=== PATIENT | female | born 1940 ===

== ENCOUNTER 2016-05-05 18:50 | Inpatient (IN) ==
[2016-05-05] MEDS ORDERED: ALBUTEROL/IPRATROPIUM 3 ML NEB RESP TX STA (19:27)
[2016-05-05 19:35] LABS: Basophils # 0.1 10*3/uL (0.0-0.2); Basophils % 0.7 % (0.0-0.8); Eosinophils # 0.6 10*3/uL (0.0-0.87); Eosinophils % 6.6 % (0.00-10.9); Hematocrit 38.2 VOL% (35.7-47.0); Hemoglobin 12.3 GM/DL (12.0-16.0); Immature Granulocytes % 0.3 %; Immature Granulocytes Absolute 0.03 #; Lymphocytes % 22.5 % (21.3-54.2); Mean Corpuscular HGB Conc 32.2 GM/DL (32-36); Mean Corpuscular Hemoglobin 29 PG (27-34); Mean Platelet Volume 10.2 FL (9.6-12.0); Monocytes # 0.5 10*3/uL (0.11-0.8); Monocytes % 5.2 % (1.7-12.7); Neutrophils # 5.8 10*3/uL (1.4-7.4); Neutrophils % 64.7 % (38.7-73.9); Platelet Count 267 T/CUMM (130-400); Red Blood Count 4.29 MC/CUMM (3.8-5.5); Red Cell Distribution Width 14.6 % (9.3-17.3); White Blood Count 8.9 T/CUMM (4-12)
[2016-05-05 19:49] LABS: Albumin 2.3 G/DL (3.4-5.0); Bilirubin,Total 0.5 MG/DL (0.2-1.0); Calcium 8.7 MG/DL (8.5-10.1); Magnesium 2.2 MG/DL (1.8-2.4); Osmolality,Calculated 295.1 MOS/KG (273-304); Potassium 3.4 MMOL/L (3.5-5.1); Total Protein 7.8 G/DL (6.4-8.3); Troponin I Only 0.044 NG/ML (0.00-0.045)
[2016-05-05 19:55] LABS: ABG Base Excess 2.5 MMOL/L (-2.5-2.5); ABG HCO3 26.8 MMOL/L (20-26); ABG PCO2 40.3 MM HG (35-48); ABG PO2 96.6 MM HG (80-95); Allen Test Positive
--- NOTE | 2016-05-05 22:24 | Emergency Department Note ---
Timmy Joy Brittany, am scribing for, and in the presence of, Michelle Mathew DO 19:21. Quincy Joy Catherine, DO, personally performed the services described in this documentation, ascribed by Karie Warner in my presence, and it is both accurate and complete . Arrival - Arrival Chief Complaint: Non-Specific Stated Complaint: elevated trop ED Nursing Triage Note: pt to room via stretcher. pt transfer from [facility]. pt was seen in [facility] for cough/ congestion. pt was transfered for elevated trop/ elevated bnp, and pleural effusion. Mode of Arrival: Stretcher Limitations: No Limitations Source: Patient, RN Notes Reviewed Time Seen by Provider: 05/05/16 19:11 - History of Present Illness HPI Narrative: Patient is a 75 y/o [place] female presenting to the ED by EMS from [facility] for further evaluation of elevated Troponin, elevated BNP, and pleural effusion. Patient presented to [facility] earlier today for c/o cough, congestion, sore throat, and "not feeling well." From lab work results obtained from [facility], patient had an elevated BNP of 6468.8 and elevated Troponin of 0.10. Patient has a past medical history of HTN and IDDM. Patient is somewhat of a poor historian. Patient states that prior to today she had never been told she had any heart problems. Patient notes that she still has a sore throat that is worse with swallowing, but denies any chest pain or shortness of breath. In room patient appears to be very weak. Patient has no other complaint/pain in the ED at this time. Onset (ago): day(s) Consistency: intermittent Severity: moderate Severity scale (1-10): 5 Quality: aching, fullness Allergies/Adverse Reactions: Allergies Allergy/AdvReac Type Severity Reaction Status Date / Time ibuprofen [From Motrin] Allergy Intermediate UNCONSCIOUS Verified 01/12/16 21:18 Medroxyprogesterone Allergy Intermediate RASH Verified 01/12/16 21:18 [From Provera] bee venom (honey bee) Allergy DIFFICULTY Verified 05/05/16 19:01 SWALLOWING Home Medications: Home Medications Medication Instructions Recorded Confirmed Type Aspirin [Ecotrin] 81 mg PO DAILY 01/12/16 01/12/16 History Glimepiride 4 mg PO BID 01/12/16 01/12/16 History Insulin Glargine [Lantus] 40 unit SUBCUT QAM 01/12/16 01/12/16 History Insulin Glargine [Lantus] 40 unit SUBCUT QPM 01/12/16 01/12/16 History Lisinopril 20 mg PO DAILY 01/12/16 01/12/16 History Metoprolol Tartrate 50 mg PO DAILY 01/12/16 01/12/16 History hydrALAZINE TAB [Apresoline Tab] 25 mg PO BID 01/12/16 01/12/16 History Review of System - Review of System 12 point system: reviewed and no additional remarkable complaints except as stated - Review of System Constitutional: Present: as per HPI Head/Ears/Nose/Throat: Present: sore throat, other (congestion) Respiratory: Present: cough Cardiovascular: Present: dyspnea on exertion, orthopnea, edema. Absent: chest pain, palpitations, syncope Gastrointestinal: Absent: abdominal pain, nausea, vomiting Musculoskeletal: Present: leg pain Skin: Absent: rash, lesions Neurological: Present: headache, weakness. Absent: numbness, confusion Medical,Surgical,& Family Hx - Medical History Cardio: History of: Hypertension Endocrine: History of: Diabetes Mellitus (IDDM) - Surgical History Surgical History: noncontributory Orthopedic Surgeries: Patient denies;: Total Knee Replacement - Family History Family History: noncontributory - Social History Smoking Status: Unknown if ever smoked Have you smoked in the last 12 months: No Frequency of Alcohol Use: Unknown Type of Drug Use: Unknown Marital Status: Unknown Functional capacity: independent ambulation Exam Vital Signs: Vital Signs Temperature 98.3 F 05/05/16 18:50 Pulse Rate 58 L 05/05/16 19:56 Respiratory Rate 16 05/05/16 19:56 Blood Pressure 130/120 05/05/16 18:50 O2 Sat by Pulse Oximetry 100 05/05/16 19:56 - General General appearance: alert, in no apparent distress - Head Head exam: Present: atraumatic, normocephalic - Eye Eye exam: Present: normal appearance, PERRL, EOMI - ENT ENT exam: Present: mucous membranes moist, TM's normal bilaterally. Absent: normal exam (erythematous throat), normal oropharynx (edentulous) - Neck Neck exam: Present: normal inspection, full ROM, trachea midline. Absent: tenderness - Chest Chest inspection: Present: normal inspection, symmetric chest wall rise. Absent : tenderness - Respiratory Respiratory exam: Absent: normal lung sounds bilaterally (lung sounds diminished at the bases), rales, rhonchi, wheezes - Cardiovascular Cardiovascular exam: Present: regular rate, normal rhythm, normal heart sounds. Absent: murmur, rubs, gallop - Abdominal Exam Abdominal exam: Present: soft, normal bowel sounds. Absent: distention, tenderness, diminished bowel sounds - Extremities Exam Extremities exam: Present: full ROM, pedal edema. Absent: normal inspection ( wound to lateral aspect of RLE), tenderness - Back Exam Back exam: Present: normal inspection, full ROM. Absent: tenderness - Neurological Exam Neurological exam: Present: alert, oriented X3, CN II-XII intact, normal gait, reflexes normal. Absent: motor sensory deficit - Psychiatric Psychiatric exam: Present: normal affect - Skin Skin exam: Present: warm, dry Course Course Narrative: no changes in the er p had meds at [facility] prior to transfer for CHF and infection - Consultations Consultation #1: Dr. Sweeney Time: 22:00 Results - Labs CBC & BMP: 05/05/16 19:02 05/05/16 19:02 Lab Results: I have reviewed the patients labs Labs: Laboratory Tests 05/05/16 19:02 WBC 8.9 RBC 4.29 Hgb 12.3 Hct 38.2 MCV 89.0 MCH 29 MCHC 32.2 RDW 14.6 Plt Count 267 MPV 10.2 Neut % (Auto) 64.7 Lymph % (Auto) 22.5 [place] % (Auto) 5.2 Eos % (Auto) 6.6 Baso % (Auto) 0.7 Neut # (Auto) 5.8 Lymph # (Auto) 2.0 [place] # (Auto) 0.5 Eos # (Auto) 0.6 Baso # (Auto) 0.1 Immature Gran % 0.3 Nucleated RBC % 0.0 Immature Gran # 0.03 Nucleated RBCs # 0.00 Laboratory Tests 05/05/16 19:02 Sodium 149 H Potassium 3.4 L Chloride 112 H Carbon Dioxide 27 Anion Gap 13.4 BUN 15 Creatinine 1.30 H GFR Calculation 49 BUN/Creatinine Ratio 11.00 Glucose 80 Calculated Osmolality 295.1 Calcium 8.7 Magnesium 2.2 Total Bilirubin 0.50 AST 14 ALT 16 Alkaline Phosphatase 112 Troponin I 0.044 Total Protein 7.8 Albumin 2.3 L Globulin 5.5 H Albumin/Globulin Ratio 0.4 L Laboratory Tests 05/05/16 19:52 ABG pH 7.440 ABG pCO2 40.3 ABG pO2 96.6 H ABG HCO3 26.8 H ABG Total CO2 28.0 H ABG O2 Saturation 97.0 ABG Base Excess 2.5 FiO2 28.00 Laboratory Tests 05/05/16 19:02 B-Natriuretic Peptide 1061 H - EKG EKG results: interpreted by ERMD - Impressions no acute findings - Diagnostic Findings Procedure: Chest x-ray: image reviewed by me (large effusion right lower lobe) Disposition Clinical Impression: CHF exacerbation Case discussed with: patient Disposition: Still a Patient Condition: Stable Time of Disposition: 22:24
--- NOTE | 2016-05-05 23:35 | Hospitalist History & Physical ---
Assessment and Plan (1) CHF exacerbation Status: Acute Assessment and plan: The patient is admitted to the hospital with sore throat, probable urinary tract infection. No urinalysis that she have been obtained but the patient smells of stale urine consistent with infection. The patient has right pleural effusion and 2+ pedal edema with mild cellulitic changes of the lower extremities. The patient will receive IV Levaquin, intravenous diuresis, control of blood sugar. We'll check urinalysis and urine culture as well as blood cultures. Current Visit: Yes Qualifiers: Congestive heart failure type: unspecified congestive heart failure type Qualified Code(s): I50.9 - Heart failure, unspecified (2) UTI (urinary tract infection) Status: Acute Current Visit: Yes (3) Sore throat Status: Acute Current Visit: Yes History of Present Illness Chief complaint: sore throat and shortness of breath History of present illness: Ms. Barnard is a 75 year old female from [facility]. The patient has history of congestive heart failure. The patient went to [facility] with complaint of sore throat today. The patient was transferred to [facility] for further evaluation. Upon my examination here at the emergency room the patient has strong smell of urine. The patient complains of sore throat and shortness of breath which is improving since she was given Lasix at [facility]. The patient's symptom is moderate, continuous, and began to improve. The patient's sore throat is associated with some indolent fever. The patient complains of painful lower extremities which are edematous. Home Medications Medication Instructions Recorded Confirmed Type Aspirin [Ecotrin] 81 mg PO DAILY 01/12/16 01/12/16 History Glimepiride 4 mg PO BID 01/12/16 01/12/16 History Insulin Glargine [Lantus] 40 unit SUBCUT QAM 01/12/16 01/12/16 History Insulin Glargine [Lantus] 40 unit SUBCUT QPM 01/12/16 01/12/16 History Lisinopril 20 mg PO DAILY 01/12/16 01/12/16 History Metoprolol Tartrate 50 mg PO DAILY 01/12/16 01/12/16 History hydrALAZINE TAB [Apresoline Tab] 25 mg PO BID 01/12/16 01/12/16 History Allergies Allergy/AdvReac Type Severity Reaction Status Date / Time ibuprofen [From Motrin] Allergy Intermediate UNCONSCIOUS Verified 01/12/16 21:18 Medroxyprogesterone Allergy Intermediate RASH Verified 01/12/16 21:18 [From Provera] bee venom (honey bee) Allergy DIFFICULTY Verified 05/05/16 19:01 SWALLOWING Medical,Surgical,& Family Hx - Medical History Cardio: History of: CHF, Hypertension Endocrine: History of: Diabetes Mellitus (NIDDM) - Surgical History Orthopedic Surgeries: Patient denies;: Total Knee Replacement - Social History Smoking Status: Unknown if ever smoked Frequency of Alcohol Use: Unknown Type of Drug Use: Unknown Marital Status: Lives With:: Children Functional capacity: uses cane/walker 12 point system: reviewed and no additional remarkable complaints except as stated Exam - Constitutional Vitals: Period Temp Pulse Resp BP Sys/Marte Pulse Ox Last 24 Hr 98.3 F-98.3 F 58-63 13-18 130-130/120-120 94-100 Exam: Obese-appearing elderly lady laying in bed in left lateral decubitus. Constitutional System: Mild distress. No tremulousness. Head: Normocephalic, atraumatic. Ears, Nose and Throat System: No evidence of Otitis or Mastoiditis. No epistaxis or discharge Eyes System: Pupils equal, round, and reactive. Extraocular muscles intact. Neck: Supple, without adenopathy, 1+ jugular venous distention. No thyromegaly , neck mass, or prior surgery apparent. Respiratory System: Chest rales in bases to auscultation. Reduced sounds on the right Cardiovascular System: Heart with regular rate and rhythm. No murmur. GI System: Abdomen obese, soft, nontender. Normoactive bowel sounds present. Musculoskeletal System: limbs with 2+ pedal edema. Full distal pulses. Reddened skin Neurological System: No discernable sensory deficit. No aphasia Psychiatric System: Conversation is rational Results - Labs CBC & BMP: 05/05/16 19:02 05/05/16 19:02 Lab Results: I have reviewed the past 24 hour labs
[2016-05-06] MEDS ORDERED: GLUCAGON 1 MG VIAL IM PRN (00:34)
[2016-05-06] MEDS ORDERED: ONDANSETRON 4 MG/2 ML VIAL IV PRN (00:34)
[2016-05-06] MEDS ORDERED: ACETAMINOPHEN 325 MG TABLET PO PRN (00:34)
[2016-05-06 01:47] LABS: Basophils # 0.1 10*3/uL (0.0-0.2); Basophils % 0.7 % (0.0-0.8); Eosinophils # 0.5 10*3/uL (0.0-0.87); Eosinophils % 5.2 % (0.00-10.9); Hematocrit 35.9 VOL% (35.7-47.0); Hemoglobin 11.7 GM/DL (12.0-16.0); Immature Granulocytes % 0.3 %; Immature Granulocytes Absolute 0.03 #; Lymphocytes # 1.6 10*3/uL (1.4-4.0); Lymphocytes % 17.9 % (21.3-54.2); Mean Corpuscular HGB Conc 32.6 GM/DL (32-36); Mean Corpuscular Hemoglobin 28 PG (27-34); Mean Corpuscular Volume 86.9 FL (87-102); Mean Platelet Volume 10.2 FL (9.6-12.0); Monocytes # 0.5 10*3/uL (0.11-0.8); Monocytes % 5.3 % (1.7-12.7); Neutrophils # 6.3 10*3/uL (1.4-7.4); Neutrophils % 70.6 % (38.7-73.9); Platelet Count 244 T/CUMM (130-400); Red Blood Count 4.13 MC/CUMM (3.8-5.5); Red Cell Distribution Width 14.6 % (9.3-17.3); White Blood Count 8.9 T/CUMM (4-12)
[2016-05-06] MEDS: LEVOFLOXACIN INJ 500 MG in PREMIX 1 EACH IV SCH (01:54)
[2016-05-06 02:14] LABS: Calcium 8.2 MG/DL (8.5-10.1); Magnesium 2.2 MG/DL (1.8-2.4); Osmolality,Calculated 295.1 MOS/KG (273-304); Potassium 3.5 MMOL/L (3.5-5.1)
[2016-05-06 02:18] LABS: Troponin I Only 0.086 NG/ML (0.00-0.045)
--- NOTE | 2016-05-06 07:18 | EKG Report ---
Stationary ECG Study [facility] ER Test Date: 05/05/2016 6:36:33 PM Pat Name: RUTH TIERNEY Department: Room: 272 Gender: F [employer] Teacher: : 1940 Requested by: Michelle Mathew Order Number: [id number] Reading MD: HERMAN MAXWELL Intervals [place] Rate: 61 P: 7 VA: 159 QRS: -18 QRSD: 97 T: 69 QT: 423 QTc: 426 Interpretive Statements SINUS RHYTHM DELAYED ANTERIOR R WAVE PROGRESSION INDICATING POSSIBLE ANTERIOR MYOCARDIAL INFARCTION, OF INDETERMINATE AGE Electronically Signed On 05-06-16 11:33:02 CODER OPERATOR by HERMAN MAXWELL [email or web address]
--- NOTE | 2016-05-06 08:07 | EKG Report ---
Stationary ECG Study [facility] Test Date: 05/06/2016 8:06:35 AM Pat Name: RUTH TIERNEY Department: Room: 272 Gender: F Refrigerating Engineer: LIZA : 1940 Requested by: Aron Sweeney Order Number: [id number] Reading MD: HERMAN MAXWELL Intervals [place] Rate: 70 P: -13 AK: 133 QRS: -42 QRSD: 92 T: 76 QT: 403 QTc: 423 Interpretive Statements SINUS RHYTHM MARKED LEFT AXIS DEVIATION/LEFT ANTERIOR FASCICULAR BLOCK PATTERN CONSISTENT WITH PULMONARY DISEASE LEFT VENTRICULAR HYPERTROPHY AND ST-T CHANGE Electronically Signed On 05-06-16 11:50:03 CULLET TRUCKER by HERMAN MAXWELL [email or web address]
[2016-05-06] MEDS: INSULIN LISPRO 100 UNIT/ML SUBCUT SCH ×4 (09:12→21:06)
[2016-05-06] MEDS: INSULIN GLARGINE 100 UNIT/ML SUBCUT SCH ×2 (09:12→18:44)
[2016-05-06] MEDS: ENOXAPARIN 30 MG/0.3 ML SYRINGE SUBCUT SCH (09:13)
[2016-05-06] MEDS: PANTOPRAZOLE 40 MG TABLET PO SCH (09:14)
[2016-05-06] MEDS: FUROSEMIDE 40 MG/4 ML VIAL IV SCH (09:14)
[2016-05-06] MEDS: ASPIRIN EC 81 MG TABLET PO SCH (09:14)
[2016-05-06] MEDS: hydrALAZINE 25 MG TABLET PO SCH ×2 (09:14→21:06)
--- NOTE | 2016-05-06 10:18 | Hospitalist Progress Note ---
Assessment and Plan (1) CHF exacerbation Status: Acute Assessment and plan: She is being treated with IV furosemide. Current Visit: Yes Qualifiers: Congestive heart failure type: unspecified congestive heart failure type Qualified Code(s): I50.9 - Heart failure, unspecified (2) UTI (urinary tract infection) Status: Acute Assessment and plan: She has been begun on antibiotics. Current Visit: Yes (3) Sore throat Status: Acute Assessment and plan: See above. Current Visit: Yes (4) Dysphagia Status: Acute Assessment and plan: Change to NPO. Speech therapy evaluation tomorrow. Current Visit: Yes Hospitalist: Subjective Interval history: Her chief complaint is that she is unable to eat. I do not completely understand her, but her difficulty does not appear to be due to sore throat. She denies dysuria or dyspnea. Exam - Constitutional Vitals: Period Temp Pulse Resp BP Sys/Marte Pulse Ox Last 24 Hr 97.1 F-97.6 F 62-79 16-18 185-199/77-97 96-97 General appearance: no acute distress - Head Head exam: Present: normal inspection - Eye Pupils: Present: [place] - ENT ENT exam: Present: normal oropharynx - Neck Neck exam: Present: normal inspection - Respiratory Respiratory exam: Present: clear to auscultation bilaterally - Cardiovascular Cardiovascular exam: Present: regular rate and rhythm - GI/Abdominal GI/Abdominal exam: Present: normal bowel sounds, soft (nontender) - Extremities Exam Extremities exam: Present: edema - Neurological Exam Neurological exam: Present: alert, oriented X3, other (no gross motor or sensory defeicits) - Skin Skin exam: Present: normal color Results - Labs CBC & BMP: 05/06/16 01:25 05/06/16 01:25
[2016-05-06] MEDS: SODIUM CHLORIDE 0.9% 1,000 ML IV SCH (10:30)
[2016-05-06 12:22] LABS: Apearance,Urine CLEAR (Clear); Bilirubin,Urine Negative (Negative); Blood, Urine Small mg/dL (Negative); Glucose,Urine (UA) Negative (Negative); Hyaline Casts,Urine 1 /LPF (0-3); Ketones,Urine Negative (Negative); Mucus,Urine Occasional /LPF (Occasional); Nitrite,Urine Negative (Negative); Protein,Urine 30 MG/DL; RBC,Urine 4 /HPF (0-4); Squamous Epithelial Cell,Urine Occasional /HPF (0-10); Urine Color Colorless (Yellow); Urine Specific Gravity 1.005 (1.001-1.035); Urine Urobilinogen < 2.0 EU/DL (0.2-1.0); WBC,Urine 8 /HPF (0-6)
[2016-05-06] MEDS: DEXTROSE 50% 25 GM/50 ML VIAL IV PRN ×2 (17:02→17:21)
[2016-05-06] MEDS: hydrALAZINE 20 MG/1 ML VIAL IV PRN (17:20)
[2016-05-07] MEDS: LEVOFLOXACIN INJ 500 MG in PREMIX 1 EACH IV SCH (00:12)
[2016-05-07 05:27] LABS: Basophils # 0.1 10*3/uL (0.0-0.2); Basophils % 0.6 % (0.0-0.8); Eosinophils # 0.3 10*3/uL (0.0-0.87); Eosinophils % 3.3 % (0.00-10.9); Hematocrit 36.5 VOL% (35.7-47.0); Hemoglobin 11.6 GM/DL (12.0-16.0); Immature Granulocytes % 0.5 %; Immature Granulocytes Absolute 0.04 #; Lymphocytes # 1.4 10*3/uL (1.4-4.0); Lymphocytes % 16.2 % (21.3-54.2); Mean Corpuscular HGB Conc 31.8 GM/DL (32-36); Mean Corpuscular Hemoglobin 28 PG (27-34); Mean Corpuscular Volume 88.8 FL (87-102); Mean Platelet Volume 9.9 FL (9.6-12.0); Monocytes # 0.4 10*3/uL (0.11-0.8); Monocytes % 4.9 % (1.7-12.7); Neutrophils # 6.6 10*3/uL (1.4-7.4); Neutrophils % 74.5 % (38.7-73.9); Platelet Count 236 T/CUMM (130-400); Red Blood Count 4.11 MC/CUMM (3.8-5.5); Red Cell Distribution Width 14.8 % (9.3-17.3); White Blood Count 8.8 T/CUMM (4-12)
[2016-05-07 05:56] LABS: Calcium 8.2 MG/DL (8.5-10.1); Osmolality,Calculated 296.3 MOS/KG (273-304); Potassium 3.9 MMOL/L (3.5-5.1)
[2016-05-07] MEDS: FUROSEMIDE 40 MG/4 ML VIAL IV SCH (08:53)
[2016-05-07] MEDS: ENOXAPARIN 30 MG/0.3 ML SYRINGE SUBCUT SCH (08:53)
[2016-05-07] MEDS: hydrALAZINE 25 MG TABLET PO SCH ×2 (09:00→22:25)
[2016-05-07] MEDS: ASPIRIN EC 81 MG TABLET PO SCH (09:00)
[2016-05-07] MEDS: PANTOPRAZOLE 40 MG TABLET PO SCH (09:00)
[2016-05-07] MEDS: INSULIN GLARGINE 100 UNIT/ML SUBCUT SCH ×2 (09:00→18:34)
[2016-05-07] MEDS: hydrALAZINE 20 MG/1 ML VIAL IV PRN ×2 (09:37→16:35)
[2016-05-07] MEDS: INSULIN LISPRO 100 UNIT/ML SUBCUT SCH ×4 (10:13→22:26)
--- NOTE | 2016-05-07 10:24 | Hospitalist Progress Note ---
Assessment and Plan (1) Insulin dependent diabetes mellitus Status: Chronic Current Visit: Yes (2) Hypertension Status: Acute Assessment and plan: better controlled now as was very elevated on admit which could have contributed to her elevated BNP and pulmonary edema. Current Visit: Yes (3) Dysphagia Status: Acute Assessment and plan: she did start coughing after taking a sip of water. Speech evaluation and may need GI consult. Current Visit: Yes Qualifiers: Dysphagia type: oropharyngeal phase Qualified Code(s): R13.12 - Dysphagia, oropharyngeal phase Hospitalist: Subjective Interval history: 75-year-old female that was acute CHF. She is compliant elevated BNP. She was started on IV Lasix here which is diuresed well difficulty swallowing. She did get choked doing a bedside swallowing exam on water. Exam - Constitutional Vitals: Period Temp Pulse Resp BP Sys/Marte Pulse Ox Last 24 Hr 96.9 F-98.9 F 63-72 16-20 149-198/65-102 95-98 General appearance: no acute distress - Head Head exam: Present: atraumatic - Eye Eye exam: Present: EOMI Pupils: Present: [place] - ENT ENT exam: Present: normal oropharynx - Respiratory Respiratory exam: Present: clear to auscultation bilaterally - Cardiovascular Cardiovascular exam: Present: regular rate and rhythm - GI/Abdominal GI/Abdominal exam: Present: normal bowel sounds, soft - Extremities Exam Extremities exam: Present: other (hyperpigmentation with stage I ulcer of right leg) - Neurological Exam Neurological exam: Present: alert, oriented X3, CN II-XII intact - Psychiatric Psychiatric exam: Present: normal affect, normal mood Results - Labs CBC & BMP: 05/07/16 04:39 05/07/16 04:39
[2016-05-07] MEDS: SODIUM CHLORIDE 0.9% 1,000 ML IV SCH (11:38)
--- NOTE | 2016-05-07 12:12 | Gastrointestinal Consult Note ---
<Bree Darling - Last Filed: 05/07/16 12:08> Assessment and Plan (1) Dysphagia Status: Acute Assessment and plan: 05/07-Report of several weeks of difficulty swallowing with ST report showing choking with liquids. No prior endoscopy. Will hold off on endoscopy at present until CV/resp status improves. Plan and addendum to follow by Dr Schwartz Current Visit: Yes Qualifiers: Dysphagia type: oropharyngeal phase Qualified Code(s): R13.12 - Dysphagia, oropharyngeal phase History of Present Illness Chief complaint: Dysphagia History of present illness: Ms. Barnard is a 75 year old female who was transferred from [facility] with reports of SOB. She has a history of CHF, HTN and DM. She is a poor historian therefore information collected from patient interview as well as chart review. Pt was admitted on 05/05 with acute episode of CHF. On admission, she reported initially to have a sore throat however she later denied this complaint. She complains more of difficulty swallowing solids. She states this has been going on for "a while" and cannot eat very much related to this. She denies any pain with swallowing. Denies any GERD. She reports a cough for the last two weeks that worsened up until admission. She was evaluated by ST and report is pending however initial report showed pt became choked with liquids. She has not had endoscopy in the past that she can recall. No reports of melena or hematochezia. She continues to be diuresed at this time and does not appear to be able to lie down comfortably at present for endoscopy. She is noted to have a UTI as well. Home Medications Medication Instructions Recorded Confirmed Type Glimepiride 4 mg PO BID 01/12/16 05/07/16 History Insulin Glargine [Lantus] 40 unit SUBCUT QAM 01/12/16 05/07/16 History Insulin Glargine [Lantus] 40 unit SUBCUT QPM 01/12/16 05/07/16 History Lisinopril 20 mg PO DAILY 01/12/16 05/07/16 History Metoprolol Tartrate 50 mg PO DAILY 01/12/16 05/07/16 History hydrALAZINE TAB [Apresoline Tab] 0.5 tablet PO BID 01/12/16 05/07/16 History Albuterol Inhaler [Proventil 2 puff INH Q4H PRN 05/07/16 05/07/16 History Inhaler] Aspirin [Ecotrin] 81 mg PO DAILY 05/07/16 05/07/16 History Furosemide Tab [Lasix Tab] 40 mg PO BID DIURETIC 05/07/16 05/07/16 History Potassium Chloride [K-Tab ER] 20 meq PO DAILY 05/07/16 05/07/16 History Simvastatin 20 mg PO DAILY 05/07/16 05/07/16 History Allergies Allergy/AdvReac Type Severity Reaction Status Date / Time ibuprofen [From Motrin] Allergy Intermediate UNCONSCIOUS Verified 01/12/16 21:18 Medroxyprogesterone Allergy Intermediate RASH Verified 01/12/16 21:18 [From Provera] bee venom (honey bee) Allergy DIFFICULTY Verified 05/05/16 19:01 SWALLOWING Medical,Surgical,& Family Hx - Medical History Cardio: History of: CHF, Hypertension Endocrine: History of: Diabetes Mellitus (IDDM), Diabetes Mellitus (NIDDM) - Surgical History Orthopedic Surgeries: Patient denies;: Total Knee Replacement - Social History Smoking Status: Never smoker Frequency of Alcohol Use: None Type of Drug Use: None 12 point system: reviewed and no additional remarkable complaints except as stated - Constitutional Constitutional: Present: as per HPI - EENT Eyes: Present: as per HPI Ears: Present: as per HPI Nose, mouth and throat: Present: dysphagia - Cardiovascular Cardiovascular: Present: as per HPI, dyspnea - Respiratory Respiratory: Present: as per HPI - Gastrointestinal Gastrointestinal: Present: as per HPI - Genitourinary Genitourinary: Present: as per HPI - Musculoskeletal Musculoskeletal: Present: as per HPI - Neurological Neurological: Present: as per HPI - Psychiatric Psychiatric: Present: as per HPI - Endocrine Endocrine: Present: as per HPI - Hematologic/Lymphatic Hematologic/Lymphatic: Present: as per HPI Exam - Constitutional Vitals: Period Temp Pulse Resp BP Sys/Marte Pulse Ox Last 24 Hr 97.4 F-98.9 F 63-72 16-20 149-198/65-102 95-98 General appearance: normal weight, no acute distress - Head Head exam: Present: normal inspection, normocephalic - Eye Eye exam: Present: other (lids and conjunctiva unremarkable). Absent: scleral icterus - ENT ENT exam: Present: normal exam, normal oropharynx - Neck Neck exam: Present: normal inspection - Respiratory Respiratory exam: Present: clear to auscultation bilaterally. Absent: rales, rhonchi, wheezes - Cardiovascular Cardiovascular exam: Present: regular rate and rhythm. Absent: diastolic murmur , JVD, systolic murmur - GI/Abdominal GI/Abdominal exam: Present: normal bowel sounds, soft. Absent: ascites, distended, mass, organomegaly, tenderness - Extremities Exam Extremities exam: Present: normal inspection, full ROM - Back Exam Back exam: Present: normal inspection - Neurological Exam Neurological exam: Present: alert, oriented X3 - Psychiatric Psychiatric exam: Present: normal affect, normal mood - Skin Skin exam: Present: normal color, warm, dry Results - Labs CBC & BMP: 05/07/16 04:39 05/07/16 04:39 Lab Results: I have reviewed the past 24 hour labs <Anthony Schwartz - Last Filed: 05/07/16 18:12> History of Present Illness History of present illness: Ms. Barnard is a 75 year old female Exam - Constitutional Vitals: Period Temp Pulse Resp BP Sys/Marte Pulse Ox Last 24 Hr 97.4 F-99.0 F 63-82 16-20 149-191/65-96 96-98 Results - Labs CBC & BMP: 05/07/16 04:39 05/07/16 04:39
[2016-05-07] MEDS ORDERED: SKIN HEALING OINT (AQUAPHOR) 50 GM TUBE TOP PRN (14:16)
--- NOTE | 2016-05-07 18:13 | ECHO Report ---
Veronica Barnard Exam Date: 05/07/2016 11:06 Referring Physician: Technologist: Marquis EDWARDS Age: 75 Ht (in): Wt (lb): Gender: F Exam Location: [facility] Echo Indications: CHF, Hypertension BP: / HR: Rhythm: Sinus Technical Quality: Good IMPRESSIONS Moderately increased septal wall thickness. Mildly increased posterior wall thickness. Moderate concentric left ventricular hypertrophy with diastolic dysfunction. Left ventricular ejection fraction is estimated at 50-55 %. Mild apical LAE. Mildly thickened mitral valve with mild mitral regurgitation. Moderate tricuspid valve regurgitation. Tricuspid regurgitation velocities suggest a PAP of 38.7 mmHg + RAP. Small posterior pericardial effusion. ? left pleural effusion. MEASUREMENTS (Male / Female) Normal Values 2D ECHO LV Diastolic Diameter PLAX 4.7 cm 4.2 - 5.9 / 3.9 - 5.3 cm LV Systolic Diameter PLAX 2.5 cm LV Fractional Shortening PLAX 48.0 % IVS Diastolic Thickness 1.5 cm 0.6 - 1.0 / 0.6 - 0.9 cm LVPW Diastolic Thickness 1.3 cm 0.6 - 1.0 / 0.6 - 0.9 cm RV Internal Dim ED PLAX 3.1 cm Aortic Root Diameter 2.2 cm LA Systolic Diameter LX 3.3 cm 3.0 - 4.0 / 2.7 - 3.8 cm DOPPLER TR Peak Velocity 311.0 cm/s TR Peak Gradient 38.7 mmHg FINDINGS Left Ventricle Moderately increased septal wall thickness. Mildly increased posterior wall thickness. Moderate concentric left ventricular hypertrophy with diastolic dysfunction. Left ventricular ejection fraction is estimated at 50-55 %. Right Ventricle Normal right ventricular size. Right Atrium Normal right atrial size. Left Atrium mild apical LAE Mitral Valve Mildly thickened mitral valve with mild mitral regurgitation. Aortic Valve Aortic valve sclerosis without stenosis or regurgitation. Tricuspid Valve Morphologically normal tricuspid valve. Moderate tricuspid valve regurgitation. Tricuspid regurgitation velocities suggest a PAP of 38.7 mmHg + RAP. Pulmonic Valve Morphologically normal pulmonic valve. Pericardium small posterior pericardial effusion. ? left pleural effusion Aorta Normal size aortic root and proximal ascending aorta. Spike Choi MD (Electronically Signed) Final Date: 07 May 2016 18:12
[2016-05-08] MEDS: LEVOFLOXACIN INJ 500 MG in PREMIX 1 EACH IV SCH (00:46)
[2016-05-08 07:42] LABS: Calcium 8.1 MG/DL (8.5-10.1); Magnesium 2.1 MG/DL (1.8-2.4); Osmolality,Calculated 297.3 MOS/KG (273-304); Potassium 3.8 MMOL/L (3.5-5.1)
[2016-05-08] MEDS: PANTOPRAZOLE 40 MG TABLET PO SCH (08:36)
[2016-05-08] MEDS: SODIUM CHLORIDE 0.9% 1,000 ML IV SCH (08:36)
[2016-05-08] MEDS: ASPIRIN EC 81 MG TABLET PO SCH (08:36)
[2016-05-08] MEDS: ENOXAPARIN 30 MG/0.3 ML SYRINGE SUBCUT SCH (08:36)
[2016-05-08] MEDS: hydrALAZINE 25 MG TABLET PO SCH ×2 (08:36→20:34)
[2016-05-08] MEDS: INSULIN LISPRO 100 UNIT/ML SUBCUT SCH ×4 (08:36→20:51)
[2016-05-08] MEDS: INSULIN GLARGINE 100 UNIT/ML SUBCUT SCH ×2 (08:37→18:30)
--- NOTE | 2016-05-08 10:00 | Hospitalist Progress Note ---
Assessment and Plan (1) Insulin dependent diabetes mellitus Status: Chronic Current Visit: Yes (2) Hypertension Status: Acute Assessment and plan: better controlled now as was very elevated on admit which could have contributed to her elevated BNP and pulmonary edema. Current Visit: Yes (3) Dysphagia Status: Acute Assessment and plan: she did start coughing after taking a sip of water. Speech evaluation and may need GI consult. 05/08/16: it appears she is aspirating and will likely have an EGD tomorrow Current Visit: Yes Qualifiers: Dysphagia type: oropharyngeal phase Qualified Code(s): R13.12 - Dysphagia, oropharyngeal phase (4) Diastolic CHF Status: Acute Assessment and plan: EG about 50% with diastolic dysfunction noted on echo. Clinically she is much better today. Current Visit: Yes Hospitalist: Subjective Interval history: Patient presented with dyspnea and was found to have diastolic dysfunction she has an ejection fraction around 55%. Clinically she is improved from respiratory standpoint; however, her only main complaint now is this 5G. She was seen by GI yesterday and they will likely do an EGD was cleared from a cardiorespiratory standpoint. Also speech therapy did evaluate patient and appears she is likely having some aspiration. They have recommended a thickened consistency diet which is been initiated. Exam - Constitutional Vitals: Period Temp Pulse Resp BP Sys/Marte Pulse Ox Last 24 Hr 98.3 F-99.5 F 67-82 16-20 110-191/38-96 96-100 General appearance: over weight - Head Head exam: Present: normocephalic, atraumatic - Eye Eye exam: Present: EOMI Pupils: Present: [place] - Neck Neck exam: Present: normal inspection - Respiratory Respiratory exam: Present: clear to auscultation bilaterally - Cardiovascular Cardiovascular exam: Present: regular rate and rhythm - GI/Abdominal GI/Abdominal exam: Present: normal bowel sounds, soft - Neurological Exam Neurological exam: Present: alert, oriented X3, CN II-XII intact - Psychiatric Psychiatric exam: Present: normal affect, normal mood - Skin Skin exam: Present: warm, intact Results - Labs CBC & BMP: 05/07/16 04:39 05/08/16 06:06
--- NOTE | 2016-05-08 10:06 | Gastrointestinal Progress Note ---
<Bree Darling - Last Filed: 05/08/16 10:02> Assessment and Plan (1) Dysphagia Status: Acute Assessment and plan: 05/08-Continues to c/o difficulty swallowing. Resp/CV status improved today. Will consider EGD if pt remains stable. Plan and addendum to follow by Dr Schwartz. 05/07-Report of several weeks of difficulty swallowing with ST report showing choking with liquids. No prior endoscopy. Will hold off on endoscopy at present until CV/resp status improves. Plan and addendum to follow by Dr Schwartz Current Visit: Yes Qualifiers: Dysphagia type: oropharyngeal phase Qualified Code(s): R13.12 - Dysphagia, oropharyngeal phase Gastroenterology - PN: Subj Interval history: CC: Dysphagia Pt is awake, more alert today. She is breathing more comfortably, and is lying flat this morning for am care and is breathing well. She had an ST evaluation with some choking of thin liquids noted. Recommedation was given by ST for soft diet with chopped meats. Pt states she still cannot swallow well. Abdomen is soft, nontender. Discussed her current status today with Dr Schaefer and she feels it is safe to proceed with endoscopy at this point. ROS: Denies SOB or chest pain Exam (Progress Note) - Constitutional Vitals: Period Temp Pulse Resp BP Sys/Marte Pulse Ox Last 24 Hr 98.3 F-99.5 F 67-82 16-20 110-191/38-96 96-100 General appearance: no acute distress, over weight - Head Head exam: Present: normal inspection, normocephalic - Eye Eye exam: Present: other (lids and conjunctiva unremarakble). Absent: scleral icterus - ENT ENT exam: Present: normal exam, normal oropharynx - Neck Neck exam: Present: normal inspection - Respiratory Respiratory exam: Present: clear to auscultation bilaterally. Absent: rales, rhonchi, wheezes - Cardiovascular Cardiovascular exam: Present: regular rate and rhythm. Absent: diastolic murmur , JVD, systolic murmur - GI/Abdominal GI/Abdominal exam: Present: normal bowel sounds, soft. Absent: ascites, distended, mass, organomegaly, tenderness - Extremities Exam Extremities exam: Present: normal inspection, full ROM - Back Exam Back exam: Present: normal inspection - Neurological Exam Neurological exam: Present: alert, oriented X3 - Psychiatric Psychiatric exam: Present: normal affect, normal mood - Skin Skin exam: Present: normal color, warm, dry Results - Labs CBC & BMP: 05/07/16 04:39 05/08/16 06:06 Lab Results: I have reviewed the past 24 hour labs <Anthony Schwartz - Last Filed: 05/08/16 17:41> Exam (Progress Note) - Constitutional Vitals: Period Temp Pulse Resp BP Sys/Marte Pulse Ox Last 24 Hr 98.3 F-99.5 F 60-77 16-20 110-174/38-90 96-100 Results - Labs CBC & BMP: 05/07/16 04:39 05/08/16 06:06
[2016-05-09] MEDS: LEVOFLOXACIN INJ 500 MG in PREMIX 1 EACH IV SCH (00:23)
[2016-05-09] MEDS: SODIUM CHLORIDE 0.9% 1,000 ML IV SCH (06:43)
[2016-05-09] MEDS: DEXTROSE 5% 1,000 ML IV SCH (08:30)
[2016-05-09] MEDS: INSULIN LISPRO 100 UNIT/ML SUBCUT SCH ×4 (09:21→21:30)
[2016-05-09] MEDS: INSULIN GLARGINE 100 UNIT/ML SUBCUT SCH ×2 (09:22→18:09)
[2016-05-09] MEDS: ENOXAPARIN 30 MG/0.3 ML SYRINGE SUBCUT SCH (09:22)
--- NOTE | 2016-05-09 09:28 | XRay Report ---
XR knee 2V RT Indication: Pain. Right knee 2 views: [id number] articulation of the medial and lateral compartments noted with osteophyte development. Patellofemoral osteophytosis is noted as well. No fracture or dislocation seen. Tiny joint effusion is present. Impression: Severe 3 compartment osteoarthritis. PROCEDURE INTERPRETED AT [facility] DEPARTMENT OF RADIOLOGY Final Report Signed by: Ty Sevilla M.D.
[2016-05-09] MEDS ORDERED: KETOROLAC 15 MG/1 ML VIAL IV ONE (10:11)
--- NOTE | 2016-05-09 10:14 | Hospitalist Progress Note ---
Assessment and Plan (1) Insulin dependent diabetes mellitus Status: Chronic Current Visit: Yes (2) Hypertension Status: Acute Assessment and plan: better controlled now as was very elevated on admit which could have contributed to her elevated BNP and pulmonary edema. Current Visit: Yes (3) Dysphagia Status: Acute Assessment and plan: she did start coughing after taking a sip of water. Speech evaluation and may need GI consult. 05/08/16: it appears she is aspirating and will likely have an EGD tomorrow 05/09/16: gong for EGD today Current Visit: Yes Qualifiers: Dysphagia type: oropharyngeal phase Qualified Code(s): R13.12 - Dysphagia, oropharyngeal phase (4) Diastolic CHF Status: Acute Assessment and plan: EF about 50% with diastolic dysfunction noted on echo. Clinically she is much better today. 05/09/16: stable Current Visit: Yes (5) Osteoarthritis Status: Acute Assessment and plan: she does have some swelling with small joint effusion and bone on bone per xray. one time dose of Toradol and them start tramadol Current Visit: Yes Qualifiers: Osteoarthritis location: knee Osteoarthritis type: unspecified Laterality : right Qualified Code(s): M17.11 - Unilateral primary osteoarthritis, right knee Hospitalist: Subjective Interval history: 75 yo female admitted for decompensated CHF which has now resolved. Also complained of some GI symptoms and going for EGD today. Major complaints today is left knee pain Exam - Constitutional Vitals: Period Temp Pulse Resp BP Sys/Marte Pulse Ox Last 24 Hr 97.4 F-99.0 F 60-76 18-20 135-188/65-91 94-99 General appearance: over weight - Head Head exam: Present: normocephalic, atraumatic - Eye Eye exam: Present: EOMI Pupils: Present: [place] - ENT ENT exam: Present: normal exam - Respiratory Respiratory exam: Present: clear to auscultation bilaterally - Cardiovascular Cardiovascular exam: Present: regular rate and rhythm - GI/Abdominal GI/Abdominal exam: Present: normal bowel sounds, soft - Expanded Right Lower Knee exam: Present: swelling, tenderness - Neurological Exam Neurological exam: Present: oriented X3, CN II-XII intact - Psychiatric Psychiatric exam: Present: normal affect, normal mood - Skin Skin exam: Present: warm, intact Results - Labs CBC & BMP: 05/07/16 04:39 05/08/16 06:06
[2016-05-09] MEDS ORDERED: LIDOCAINE 2% 5 ML VIAL ONE (11:15)
[2016-05-09] MEDS ORDERED: PROPOFOL 200 MG/20 ML VIAL IV ONE (11:15)
--- NOTE | 2016-05-09 11:23 | History and Physical Update ---
History and Physical Update - Physical Exam Mental Status: alert and oriented Heart: regular rate and rhythm Lung: clear to auscultation Abdomen: within normal limits Vitals: within normal limits
--- NOTE | 2016-05-09 11:25 | Operative Note ---
Date of procedure: 05/09/16 Pre-op diagnosis: dysphagia Procedure: EGD with esophageal dilatation 75-year-old [place] female with complaints of dysphagia now for upper endoscopy to further evaluate. Informed consent was obtained She was sedated with Mac anesthesia per anesthesia protocol. Patient placed in left lateral decubitus position the Olympus flexible video upper endoscope was inserted into the oral cavity under direct vision the esophagus was intubated findings: Esophagus-normal proximal mid esophageal mucosa distal esophagus with moderate hiatal hernia distal esophageal stricture no significant esophagitis was seen. Stomach-normal insufflation normal mucosa to direct retroflex views of the body fundus cardia antral stomach. Pylorus-normal Duodenum-normal the bulb the duodenum to the third portion of the duodenum. The procedure was terminated and the scope was removed. Subsequently a 52 [place] bougie was passed without difficulty. Patient our procedure well she's discharge covering good condition Postop diagnosis: #1 gastroesophageal reflux disease-continue PPI treatment #2 esophageal stricture repeat dilatation on an as-needed basis. Anesthesia: MAC Surgeon / Physician: Anthony Schwartz Estimated blood loss: none Specimens: none sent Condition: stable Disposition: post procedure unit Results - Labs CBC & BMP: 05/07/16 04:39 05/08/16 06:06 Discharge Plan - Discharge Medications No Action hydrALAZINE TAB [Apresoline Tab] 0.5 tablet PO BID Metoprolol Tartrate 50 mg PO DAILY Lisinopril 20 mg PO DAILY Insulin Glargine [Lantus] 40 unit SUBCUT QAM Insulin Glargine [Lantus] 40 unit SUBCUT QPM Glimepiride 4 mg PO BID Albuterol Inhaler [Proventil Inhaler] 2 puff INH Q4H PRN PRN Reason: Shortness Of Breath/Wheezing Simvastatin 20 mg PO DAILY Aspirin [Ecotrin] 81 mg PO DAILY Furosemide Tab [Lasix Tab] 40 mg PO BID DIURETIC Potassium Chloride [K-Tab ER] 20 meq PO DAILY - Follow Up or Referral - Forms/Instructions
[2016-05-09] MEDS: hydrALAZINE 25 MG TABLET PO SCH ×2 (12:45→21:30)
[2016-05-09] MEDS: ASPIRIN EC 81 MG TABLET PO SCH (12:45)
[2016-05-09] MEDS: PANTOPRAZOLE 40 MG TABLET PO SCH (12:45)
[2016-05-10] MEDS: LEVOFLOXACIN INJ 500 MG in PREMIX 1 EACH IV SCH (00:04)
[2016-05-10] MEDS: DEXTROSE 5% 1,000 ML IV SCH (04:46)
[2016-05-10] MEDS: INSULIN LISPRO 100 UNIT/ML SUBCUT SCH ×3 (07:43→15:59)
--- NOTE | 2016-05-10 08:36 | Discharge Summary ---
<Lauren Orta - Last Filed: 05/10/16 08:31> Hospital Course - Hospital Course Hospital Course: Ms. Barnard was admitted on 05/05 with Acute diastolic CHF exacerbation, UTI and a sore throat. She was sent to our facility from [facility]. She did get a dose of lasix prior to transfer that did result in improvement of her symptoms. ECHO was performed and showed EF 50-55% with diastolic dysfunction and moderate concentric left ventricular hypertrophy. She was started on Levaquin for her UTI and in and out cath urine grew E coli. Blood cx's were negative at [address] Anthony Schwartz was consulted given some complaints of dysphagia. ST eval showed "choking with liquids". She has never been scoped before. She did appear to be aspiration some. She was placed on a soft diet. On 05/09, Dr. Schwartz took Ms. Barnard to the scope lab where an EGD with esophageal dilatation was carried out. Findings were as follows : GERD- continue PPI therapy; esophageal stricture- dilate on PRN basis. She has improved and her vitals and labs are stable to improved and she is ready for discharge home today with appropriate medications and follow up. - Time spent with patient Time with patient DS: Greater than 30 minutes (due to plan, doc and med rec.) Diagnosis - Discharge Diagnosis (1) Acute on chronic diastolic (congestive) heart failure Status: Acute (2) E. coli UTI (urinary tract infection) Status: Acute (3) Esophageal stricture Status: Acute (4) S/P dilatation of esophageal stricture Status: Acute (5) Dysphagia Status: Acute (6) Hypertension Status: Acute (7) Sore throat Status: Acute (8) Insulin dependent diabetes mellitus Status: Chronic Discharge Plan - Discharge Data Disposition: Disch To Home/Self Care - Discharge Medications New Pantoprazole Tab [Protonix Tab] 40 mg PO DAILY #30 tablet Continue hydrALAZINE TAB [Apresoline Tab] 0.5 tablet PO BID Metoprolol Tartrate 50 mg PO DAILY Lisinopril 20 mg PO DAILY Insulin Glargine [Lantus] 40 unit SUBCUT QAM Insulin Glargine [Lantus] 40 unit SUBCUT QPM Glimepiride 4 mg PO BID Albuterol Inhaler [Proventil Inhaler] 2 puff INH Q4H PRN PRN Reason: Shortness Of Breath/Wheezing Simvastatin 20 mg PO DAILY Aspirin [Ecotrin] 81 mg PO DAILY Furosemide Tab [Lasix Tab] 40 mg PO BID DIURETIC Potassium Chloride [K-Tab ER] 20 meq PO DAILY - Follow Up or Referral - Forms/Instructions Exam - Constitutional Vitals: Period Temp Pulse Resp BP Sys/Marte Pulse Ox Last 24 Hr 96.7 F-97.9 F 61-71 16-20 91-160/39-034 95-100 Discharge Results Procedures and tests throughout hospitalization: Pending Orders 05/06/16 01:25 Blood Culture Stat Labs on day of discharge: Labs from last 24 hours 05/10/16 05/09/16 05/09/16 07:07 19:17 15:25 POC Glucose 108 H 156 H 114 H Uric Acid 05/09/16 05/09/16 05/09/16 12:20 09:53 09:17 POC Glucose 83 87 93 Uric Acid 05/09/16 08:59 POC Glucose Uric Acid 6.2 H Preliminary micro results at discharge 05/06/16 01:25 Blood Culture - Preliminary Blood No growth at 3 days 05/06/16 01:25 Blood Culture - Preliminary Blood No growth at 3 days DS: Provider Date of admission: 05/05/16 23:24 Primary care physician: Diana Smith MD Attending physician on admission: Paul Staton Consults: 05/07/16 10:26 Consult to Physician [CONS] Routine Comment: Dysphagia Consulting Provider: Anthony Schwartz Consult to Specialist Group: Gastroenterology When should Consulting Provider be notified: Now Consult Notification Comment: TEXTED CONSULT TO [facility] AT 1050 05/07/16 13:02 Consult to Wound Care - [place] [CONS] Routine Reason for Wound Care: Wound Care Management Consult Comment: wounds to BLE on admit Discharging clinician: Lauren Orta NP Expected date of discharge: 05/10/16 <Bree Schaefer - Last Filed: 05/10/16 09:35> Hospital Course - Hospital Course Hospital Course: She was seen by speech therapy and they have recommended a mechanical soft diet with thickened liquids. Patient states she is feeling much better today. Diagnosis - Discharge Diagnosis (1) Insulin dependent diabetes mellitus Status: Chronic (2) Hypertension Status: Acute (3) Dysphagia Status: Resolved (4) Diastolic CHF Status: Acute (5) Osteoarthritis Status: Acute (6) At risk for aspiration Status: Acute Discharge Plan - Discharge Data Condition at Discharge: Stable Discharge Diet: other (mechanical soft with thickened liquids) Activity: resume usual activities as tolerated Contact your physician if you experience:: Nausea/Vomiting, Shortness of breath - Forms/Instructions Additional Discharge Instructions: follow up with PCP in 3-5 days Exam - Constitutional General appearance: no acute distress - Head Head exam: Present: normocephalic, atraumatic - Eye Eye exam: Present: EOMI Pupils: Present: [place] - ENT ENT exam: Present: normal exam - Respiratory Respiratory exam: Present: clear to auscultation bilaterally - Cardiovascular Cardiovascular exam: Present: regular rate and rhythm - GI/Abdominal GI/Abdominal exam: Present: normal bowel sounds, soft - Extremities Exam Extremities exam: Present: full ROM - Neurological Exam Neurological exam: Present: alert, oriented X3, CN II-XII intact - Psychiatric Psychiatric exam: Present: normal affect, normal mood - Skin Skin exam: Present: warm, intact
[2016-05-10] MEDS: ENOXAPARIN 30 MG/0.3 ML SYRINGE SUBCUT SCH (08:52)
[2016-05-10] MEDS: hydrALAZINE 25 MG TABLET PO SCH (08:53)
[2016-05-10] MEDS: PANTOPRAZOLE 40 MG TABLET PO SCH (08:53)
[2016-05-10] MEDS: ASPIRIN EC 81 MG TABLET PO SCH (08:53)
[2016-05-10] MEDS: INSULIN GLARGINE 100 UNIT/ML SUBCUT SCH (10:21)
--- NOTE | 2016-05-10 10:54 | Gastrointestinal Progress Note ---
<Bree Darling - Last Filed: 05/10/16 10:51> Assessment and Plan (1) Dysphagia Status: Resolved Assessment and plan: 05/10-Slight improvement with swallowing, pt remains with concerns. To be discharged home today. Further plan and addendum to follow by DR Schwartz. 05/08-Continues to c/o difficulty swallowing. Resp/CV status improved today. Will consider EGD if pt remains stable. Plan and addendum to follow by Dr Schwartz. 05/07-Report of several weeks of difficulty swallowing with ST report showing choking with liquids. No prior endoscopy. Will hold off on endoscopy at present until CV/resp status improves. Plan and addendum to follow by Dr Schwartz Qualifiers: Dysphagia type: oropharyngeal phase Qualified Code(s): R13.12 - Dysphagia, oropharyngeal phase Gastroenterology - PN: Subj Interval history: CC: Dsyphagia Pt is seen awake and alert, states she is not feeling much better today. She states she is not swallowing much better today. Pt had EGD on yesterday with findings of GERD and stricture. She was dilated at that time.She is to be discharged home today however pt has concerns over her eating and if this does not improve. Abdomen is soft, nontender. ROS: Denies SOB or chest pain Exam (Progress Note) - Constitutional Vitals: Period Temp Pulse Resp BP Sys/Marte Pulse Ox Last 24 Hr 96.7 F-97.9 F 61-71 16-20 91-160/39-034 95-100 General appearance: normal weight, no acute distress - Head Head exam: Present: normal inspection, normocephalic - Eye Eye exam: Present: other (lids and conjunctiva unremarkable). Absent: scleral icterus - ENT ENT exam: Present: normal exam, normal oropharynx - Neck Neck exam: Present: normal inspection - Respiratory Respiratory exam: Present: clear to auscultation bilaterally. Absent: rales, rhonchi, wheezes - Cardiovascular Cardiovascular exam: Present: regular rate and rhythm. Absent: diastolic murmur , JVD, systolic murmur - GI/Abdominal GI/Abdominal exam: Present: normal bowel sounds, soft. Absent: ascites, distended, mass, organomegaly, tenderness - Extremities Exam Extremities exam: Present: normal inspection, full ROM - Back Exam Back exam: Present: normal inspection - Neurological Exam Neurological exam: Present: alert, oriented X3 - Psychiatric Psychiatric exam: Present: normal affect, normal mood - Skin Skin exam: Present: normal color, warm, dry Results - Labs CBC & BMP: 05/07/16 04:39 05/08/16 06:06 Lab Results: I have reviewed the past 24 hour labs Specialty Discharge - Follow Up or Referrals <Anthony Schwartz - Last Filed: 05/10/16 18:41> Exam (Progress Note) - Constitutional Vitals: Period Temp Pulse Resp BP Sys/Marte Pulse Ox Last 24 Hr 96.6 F-97.8 F 62-72 16-20 122-154/55-83 94-100 Results - Labs CBC & BMP: 05/07/16 04:39 05/08/16 06:06
[2016-05-10 12:01] VITALS: BP 154/79
== END 2016-05-10 17:25 | disposition hospice, home (50) | DRG 292 ==
LOC: EDBD → EDUNIT# → N.ED 18:50 → N.EDINP 23:24 → N.2E 23:59 → N.TELES 23:59

== ENCOUNTER 2016-12-18 15:21 | Inpatient (IN) ==
--- NOTE | 2016-12-18 16:46 | XRay Report ---
Exam: XR chest 1V portable Date: 12/18/2016 4:13 PM Indication: Shortness of breath Comparison: 05/05/2016 Technical: AP Findings: Cardiomegaly is present. Shunt vascularity is present. Low volume right effusion. External cardiac leads are present. Arthritic changes are present with degenerative spondylosis change thoracic spine. A component of calcific tendinopathy of the rotator cuff tendons present on the right. Heterotopic calcification noted Impression: 1. Cardiomegaly with component of CHF and slight asymmetric pulmonary edema right greater than left PROCEDURE INTERPRETED AT [facility] DEPARTMENT OF RADIOLOGY Final Report Signed by: Dr. Sam Cottrell
[2016-12-18 16:47] LABS: Basophils # 0.1 10*3/uL (0.0-0.2); Basophils % 0.8 % (0.0-0.8); Eosinophils # 0.5 10*3/uL (0.0-0.87); Eosinophils % 5.2 % (0.00-10.9); Hemoglobin 11.7 GM/DL (12.0-16.0); Immature Granulocytes % 0.3 %; Immature Granulocytes Absolute 0.03 #; Lymphocytes # 1.7 10*3/uL (1.4-4.0); Lymphocytes % 18.6 % (21.3-54.2); Mean Corpuscular HGB Conc 33.4 GM/DL (32-36); Mean Corpuscular Hemoglobin 29 PG (27-34); Mean Corpuscular Volume 87.9 FL (87-102); Mean Platelet Volume 10.2 FL (9.6-12.0); Monocytes # 0.5 10*3/uL (0.11-0.8); Monocytes % 5.4 % (1.7-12.7); Neutrophils # 6.4 10*3/uL (1.4-7.4); Neutrophils % 69.7 % (38.7-73.9); Platelet Count 252 T/CUMM (130-400); Red Blood Count 3.98 MC/CUMM (3.8-5.5); Red Cell Distribution Width 14.7 % (9.3-17.3); White Blood Count 9.2 T/CUMM (4-12)
--- NOTE | 2016-12-18 16:47 | XRay Report ---
Exam: XR shoulder 2V LT Date: 12/18/2016 4:13 PM Indication: Left shoulder pain status post fall Comparison: None Technical: Internal/external rotation Findings: Minimal degenerative changes present AC joint. The humeral head is intact the scapula and adjacent ribs are unremarkable. The acromium is intact. Impression: 1. Mild degenerative arthritic changes AC joint without fracture. PROCEDURE INTERPRETED AT [facility] DEPARTMENT OF RADIOLOGY Final Report Signed by: Dr. Sam Cottrell
[2016-12-18 17:15] LABS: Albumin 2.4 G/DL (3.4-5.0); Bilirubin,Total 0.7 MG/DL (0.2-1.0); Calcium 8.5 MG/DL (8.5-10.1); Osmolality,Calculated 294.3 MOS/KG (273-304); Potassium 3.2 MMOL/L (3.5-5.1); Total Protein 6.3 G/DL (6.4-8.3)
[2016-12-18 17:16] LABS: Troponin I Only 0.063 NG/ML (0.00-0.045)
[2016-12-18] MEDS ORDERED: ENOXAPARIN 30 MG/0.3 ML SYRINGE SUBCUT STA (17:26)
[2016-12-18] MEDS ORDERED: ASPIRIN CHEW 81 MG TABLET PO STA (17:26)
--- NOTE | 2016-12-18 17:28 | Emergency Department Note ---
Timmy Joy Brittany, am scribing for, and in the presence of, Brayden Christianson MD 16:16. Meghan Joy Phillip K, MD, personally performed the services described in this documentation, ascribed by Karie Warner in my presence, and it is both accurate and complete . Arrival - Arrival Chief Complaint: Weakness ED Nursing Triage Note: Brought in per EMS from home with c/o generalized weakness onset 12/15/16. Reports was walking and legs, "just gave away". Fell onto floor, complains of left shoulder pain. Also c/o shortness of breath onset this am. Mode of Arrival: Stretcher Limitations: No Limitations Source: Patient, RN Notes Reviewed - History of Present Illness HPI Narrative: Patient is a 76 y/o [place] female presenting to the ED via EMS for further evaluation of generalized weakness that has been ongoing x3 days. Patient reports that she was walking when her legs suddenly gave way, resulting in her falling, landing onto the floor below her 2 days ago. She has since been having L shoulder pain. Patient en route to the ED was given 100 mcg Fentanyl per EMS for L shoulder pain. Patient states that last night she developed L sided chest pain and this morning became short of breath while lying in bed. Denies having any N/V or diaphoresis. Has had cough but no fevers. Patient reports a history of HTN and DM. Denies use of tobacco. Patient has no further complaints. Onset (ago): day(s) (3) Consistency: constant Date of Last Menstrual Period: PM Allergies/Adverse Reactions: Allergies Allergy/AdvReac Type Severity Reaction Status Date / Time ibuprofen [From Motrin] Allergy Intermediate UNCONSCIOUS Verified 12/18/16 15:31 Medroxyprogesterone Allergy Intermediate RASH Verified 12/18/16 15:31 [From Provera] venom-honey bee Allergy DIFFICULTY Verified 12/18/16 15:31 [bee venom (honey bee)] SWALLOWING Home Medications: Home Medications Medication Instructions Recorded Confirmed Type Lisinopril 20 mg PO DAILY 01/12/16 12/18/16 History Albuterol Inhaler [Proventil 1 puff INH Q4H PRN 05/07/16 12/18/16 History Inhaler] Pantoprazole Tab [Protonix Tab] 40 mg PO DAILY #30 tablet 05/10/16 12/18/16 Rx Carvedilol [Coreg] 6.25 mg PO BID 12/18/16 12/18/16 History Insulin Aspart [NovoLOG FlexPen] 3 units SUBCUT TID W/MEALS 12/18/16 12/18/16 History Insulin Detemir [Levemir FlexPen] 15 units SUBCUT BEDTIME 12/18/16 12/18/16 History Ranitidine Tab [Zantac Tab] 150 mg PO BID 12/18/16 12/18/16 History Review of System - Review of System 12 point system: reviewed and no additional remarkable complaints except as stated - Review of System Constitutional: Present: weakness (generalized). Absent: as per HPI, fever Eyes: Absent: vision change Head/Ears/Nose/Throat: Absent: nasal drainage, sore throat Respiratory: Present: respiratory distress Cardiovascular: Present: chest pain Gastrointestinal: Absent: abdominal pain, nausea, vomiting, diarrhea, constipation, melena, hematochezia Genitourinary female: Absent: dysuria, frequency, urgency Musculoskeletal: Present: arm pain (L shoulder). Absent: back pain, leg pain, neck pain Skin: Absent: rash Neurological: Absent: headache Psychiatric: Absent: anxiety, depression Hematological/Lymphatic: Absent: easy bleeding, easy bruising Medical,Surgical,& Family Hx - Medical History Cardio: History of: CHF, Hypertension Endocrine: History of: Diabetes Mellitus (IDDM), Diabetes Mellitus (NIDDM) - Surgical History Orthopedic Surgeries: Patient denies;: Total Knee Replacement - Social History Smoking Status: Never smoker Exam Vital Signs: Vital Signs Temperature 97.4 F L 12/18/16 15:21 Pulse Rate 59 L 12/18/16 15:21 Respiratory Rate 20 12/18/16 15:21 Blood Pressure 184/78 12/18/16 15:21 O2 Sat by Pulse Oximetry 97 12/18/16 15:21 - General General appearance: alert, in no apparent distress - Head Head exam: Present: atraumatic, normocephalic, normal inspection - Eye Eye exam: Present: normal appearance, PERRL, EOMI - ENT ENT exam: Present: normal exam, normal oropharynx - Neck Neck exam: Present: normal inspection, full ROM, trachea midline - Chest Chest inspection: Present: symmetric chest wall rise, tenderness (L lateral CW TTP) - Respiratory Respiratory exam: Present: normal lung sounds bilaterally. Absent: respiratory distress - Cardiovascular Cardiovascular exam: Present: regular rate, normal rhythm, normal heart sounds. Absent: murmur, rubs, gallop - Abdominal Exam Abdominal exam: Present: soft, normal bowel sounds. Absent: distention, tenderness - Extremities Exam Extremities exam: Present: tenderness (TTP over L collarbone), pedal edema (+1 edema bilateral lower extremities). Absent: normal inspection (Chronic venous stasis changes to bilateral lower extremities) - Back Exam Back exam: Present: normal inspection - Neurological Exam Neurological exam: Present: alert, oriented X3, CN II-XII intact. Absent: motor sensory deficit - Psychiatric Psychiatric exam: Present: normal affect, normal mood - Skin Skin exam: Present: warm, dry Results - Labs CBC & BMP: 12/18/16 16:36 12/18/16 16:36 Lab Results: I have reviewed the patients labs Labs: Laboratory Tests 12/18/16 16:36 WBC 9.2 RBC 3.98 Hgb 11.7 L Hct 35.0 L Plt Count 252 Lymph % (Auto) 18.6 L Laboratory Tests 12/18/16 12/18/16 16:36 17:10 Sodium 148 H Potassium 3.2 L Chloride 112 H BUN 19 H Creatinine 1.90 H Glucose 89 POC Glucose 112 H Troponin I 0.063 H Total Protein 6.3 L Albumin 2.4 L Globulin 3.9 H Albumin/Globulin Ratio 0.6 L - EKG EKG results: interpreted by ERMD (Sinus bradycardia with nonspecific ST-T changes) - Diagnostic Findings Procedure: Chest x-ray: report reviewed by me ( Cardiomegaly with component of CHF and slight asymmetric pulmonary edema right greater than left.), X-ray: report reviewed by me (Shoulder XR: Mild degenerative arthritic changes AC joint without fracture.) Disposition Clinical Impression: Chest pain, Elevated troponin, CHF NYHA class III (symptoms with mildly strenuous activities) Case discussed with: patient, patient's family, patient's physician Disposition: Still a Patient Condition: Guarded Additional Instructions: Admit to the hospitalist.
[2016-12-18] MEDS ORDERED: FUROSEMIDE 40 MG/4 ML VIAL IV STA (17:30)
[2016-12-18] MEDS ORDERED: ASPIRIN 325 MG TABLET ONE (18:03)
[2016-12-18] MEDS ORDERED: ENOXAPARIN 100 MG/ML SYRINGE SUBCUT ONE (18:03)
[2016-12-18] MEDS ORDERED: FUROSEMIDE 40 MG/4 ML VIAL ONE (18:03)
[2016-12-18] MEDS ORDERED: POTASSIUM CHLORIDE 20 MEQ TABLET PO STA (18:58)
--- NOTE | 2016-12-18 19:29 | Hospitalist History & Physical ---
Addendum entered and electronically signed by Lucila Hoang NP 12/18/16 19 :57: Called to the ER for Ms. Veronica Barnard who presents to the emergency room today complaining of chest pain that started this morning at 6 AM and shortness of breath that has been going on for several days. Patient says she has fallen every day since Saturday and was evaluated each time at [facility] and discharged home. Patient states she was getting her grandkids ready for school this morning when the chest pain started. She describes a sharp pain with no radiation and no alleviating or aggravating factors. She is currently pain-free and not short of breath right now. Prior to falling, patient denied chest pain, shortness of breath, dizziness, palpitations, or fatigue. She says the reason she fell was because "her knees gave out." Patient does have bilateral knee pain, bilateral hip pain, and left shoulder pain from falling. She states she has been in a wheelchair for 3 years due to arthritis in her knees. She has not seen an orthopedic for this problem. Her last echocardiogram was April 2016 that showed an EF of 65%, moderate concentric left ventricular hypertrophy, mild left atrial enlargement, and tricuspid regurgitation. She states she has never seen a sports activities foul judge for congestive heart failure. Upon exam, she was found to have alligator-like skin to both her feet and ankles with mild erythema and edema. Patient is a poor historian with a significant amount of noncompliance. Patient states she lives at home with her daughter and grandkids. She will be admitted into the hospital, with gentle diuresis, blood pressure control, cardiology and orthopedic consultation , older adult social work specialist consultation in trending lab work. Home medications were reconciled. Original Note: <Lucila Hoang - Last Filed: 12/18/16 19:48> History of Present Illness History of present illness: Ms. Barnard is a 76 year old female Home Medications Medication Instructions Recorded Confirmed Type Lisinopril 20 mg PO DAILY 01/12/16 12/18/16 History Albuterol Inhaler [Proventil 1 puff INH Q4H PRN 05/07/16 12/18/16 History Inhaler] Pantoprazole Tab [Protonix Tab] 40 mg PO DAILY #30 tablet 05/10/16 12/18/16 Rx Carvedilol [Coreg] 6.25 mg PO BID 12/18/16 12/18/16 History Insulin Aspart [NovoLOG FlexPen] 3 units SUBCUT TID W/MEALS 12/18/16 12/18/16 History Insulin Detemir [Levemir FlexPen] 15 units SUBCUT BEDTIME 12/18/16 12/18/16 History Ranitidine Tab [Zantac Tab] 150 mg PO BID 12/18/16 12/18/16 History Allergies Allergy/AdvReac Type Severity Reaction Status Date / Time ibuprofen [From Motrin] Allergy Intermediate UNCONSCIOUS Verified 12/18/16 15:31 Medroxyprogesterone Allergy Intermediate RASH Verified 12/18/16 15:31 [From Provera] venom-honey bee Allergy DIFFICULTY Verified 12/18/16 15:31 [bee venom (honey bee)] SWALLOWING Medical,Surgical,& Family Hx - Medical History Cardio: No history of: CAD, [place] Psychological: No history of: Anxiety Disorders - Family History Family History: Reports;: Family Diabetes, Family Heart Disease, Family Hypertension - Social History Smoking Status: Former smoker Have you smoked in the last 12 months: No - Constitutional Constitutional: Present: fatigue. Absent: anorexia, chills, fever(s), increased appetite, weakness - EENT Nose, mouth and throat: Absent: dysphagia - Cardiovascular Cardiovascular: Present: chest pain at rest, chest pain with activity, dyspnea ( when lying down). Absent: edema, radiating jaw, neck or arm pain, lightheadedness, palpitations - Respiratory Respiratory: Present: dyspnea. Absent: cough, wheezing - Gastrointestinal Gastrointestinal: Absent: abdominal pain, change in bowel habits, constipation, diarrhea, dyspepsia, nausea, vomiting - Neurological Neurological: Present: abnormal gait - Hematologic/Lymphatic Hematologic/Lymphatic: Absent: easy bleeding Exam - Constitutional Vitals: Period Temp Pulse Resp BP Sys/Marte Pulse Ox Last 24 Hr 97.4 F-97.4 F 53-61 12-21 143-199/67-102 96-98 - Neurological Exam Neurological exam: Present: motor sensory deficit - Skin Skin exam: Present: other Results - Labs CBC & BMP: 12/18/16 16:36 12/18/16 16:36 <White,Svetlana R - Last Filed: 12/18/16 20:10> Assessment and Plan (1) Acute on chronic diastolic (congestive) heart failure Status: Acute Assessment and plan: lasix 40 mg IV every 12 hours, low dose coreg, already had echo in 04/2016 diastolic Current Visit: No (2) Chest pain Status: Acute Assessment and plan: serial troponins and EKG, Consult Dr. Jett in am, cont asa Current Visit: Yes (3) Bilateral leg weakness Status: Acute Assessment and plan: PT, OT, case management for rehab at [facility] Current Visit: Yes (4) Insulin dependent diabetes mellitus Status: Chronic Assessment and plan: restarted home insulin, isc, hgb a1c Current Visit: No (5) Hypertension Status: Acute Assessment and plan: hydralazine, coreg, and isosorbide mononitrate Current Visit: No (6) Osteoarthritis Status: Acute Assessment and plan: bilateral knee xrays and hips, Consult Dr. Bailon for knee injections to help with pain so she can tolerate rehab Current Visit: No Qualifiers: Osteoarthritis location: knee Osteoarthritis type: unspecified Laterality : right Qualified Code(s): M17.11 - Unilateral primary osteoarthritis, right knee (7) Hypernatremia Status: Acute Assessment and plan: monitor bmp Current Visit: Yes (8) Hypokalemia Status: Acute Assessment and plan: replacing and recheck in am Current Visit: Yes (9) Acute on chronic renal failure Status: Acute Assessment and plan: worsening renal function since apr, cont to monitor while on lasix Current Visit: Yes History of Present Illness Chief complaint: SOB History of present illness: Ms. Barnard is a 76 year old female [place] female presenting to the ED via EMS for further evaluation of generalized weakness that has been ongoing x3 days. Patient reports that she was walking when her legs suddenly gave way, resulting in her falling, landing onto the floor below her 2 days ago. She has since been having L shoulder pain. Patient en route to the ED was given 100 mcg Fentanyl per EMS for L shoulder pain. Patient states that last night she developed L sided chest pain and this morning became short of breath while lying in bed. Denies having any N/V or diaphoresis. Has had cough but no fevers. Patient reports a history of HTN and DM. Denies use of tobacco. Patient has no further complaints. Medical,Surgical,& Family Hx - Medical History Cardio: History of: CHF, Hypertension Endocrine: History of: Diabetes Mellitus (IDDM), Diabetes Mellitus (NIDDM) - Surgical History Orthopedic Surgeries: Patient denies;: Total Knee Replacement - Social History Smoking Status: Never smoker Frequency of Alcohol Use: None Type of Drug Use: None Marital Status: Single Lives With:: Children Functional capacity: wheelchair bound - Constitutional Constitutional: Present: frequent falls - EENT Eyes: Absent: blurry vision, diplopia Ears: Absent: decreased hearing, ear discharge - Genitourinary Genitourinary: Present: urinary frequency, urinary incontinence. Absent: difficulty urinating, dysuria - Musculoskeletal Musculoskeletal: Present: arthralgias, joint swelling, limited range of motion - Neurological Neurological: Absent: focal weakness, syncope - Psychiatric Psychiatric: Present: depression. Absent: anxiety - Endocrine Endocrine: Absent: cold intolerance, fatigue, heat intolerance - Hematologic/Lymphatic Hematologic/Lymphatic: Absent: easy bruising Exam - Constitutional Vitals: Period Temp Pulse Resp BP Sys/Marte Pulse Ox Last 24 Hr 97.4 F-97.4 F 53-61 12-21 143-199/67-102 96-98 General appearance: no acute distress, morbidly obese - Head Head exam: Present: normal inspection, normocephalic - Eye Eye exam: Present: EOMI. Absent: scleral icterus Pupils: Present: [place], normal accommodation - ENT ENT exam: Present: normal exam, normal external ear exam - Neck Neck exam: Absent: lymphadenopathy, thyromegaly - Respiratory Respiratory exam: Present: decreased breath sounds, rales. Absent: rhonchi, wheezes - Cardiovascular Cardiovascular exam: Present: regular rate and rhythm. Absent: systolic murmur - GI/Abdominal GI/Abdominal exam: Present: normal bowel sounds, soft. Absent: tenderness - Extremities Exam Extremities exam: Present: normal capillary refill, edema (right LE edema worse on right with erythema, alligator like dryness in her feet with unkept toenails with dirt and stool residual on her left foot), other (pain in bilateral knees with flexion and extension of knee, significant swelling in right knee ) - Neurological Exam Neurological exam: Present: alert, altered, motor sensory deficit (bilateral LE weakness and pain), reflexes normal - Psychiatric Psychiatric exam: Present: depressed, flat affect - Skin Skin exam: Present: normal color, warm, dry, other (aligator skin with dirt and unkept toenails ) Results - Labs CBC & BMP: 12/18/16 16:36 12/18/16 16:36 Lab Results: I have reviewed the past 24 hour labs - EKG EKG shows: sinus rhythm (No ST changes on EKG) - Diagnostic Findings Procedure: Chest x-ray: report reviewed by me (Cardiomegaly with CHF.), Ultrasound: report reviewed by me (Echocardiogram from April 2016 showed an EF of 65% with grade 1/4 diastolic dysfunction and moderate concentric LVH with PA P of 32), X-ray: report reviewed by me, pending (Left shoulder shows degenerative changes with AC joint without fracture)
--- NOTE | 2016-12-18 20:27 | Ultrasound Report ---
Exam: US venous doppler LE BI Indication: Pain and swelling Date: 12/18/2016 7: 48 PM Findings: The right common femoral, superficial femoral, popliteal and proximal saphenous saphenous veins are patent with normal waveform phasicity and augmentation as well as complete vessel compressibility. There is no evidence of popliteal or Jones's cyst. The left common femoral, superficial femoral, popliteal and proximal saphenous saphenous veins are patent with normal waveform phasicity and augmentation as well as complete vessel compressibility. There is no evidence of popliteal or Jones's cyst. Impression: No evidence of deep venous thrombosis within bilateral lower extremity Ultrasound images were captured and stored. PROCEDURE INTERPRETED AT [facility] DEPARTMENT OF RADIOLOGY Final Report Signed by: Yumiko Hathaway MD
[2016-12-18] MEDS ORDERED: POTASSIUM CHLORIDE 20 MEQ TABLET PO ONE (20:32)
[2016-12-18] MEDS ORDERED: MAGNESIUM SULF RIDER 2 GM in PREMIX 1 EACH IV PRN (21:48)
[2016-12-18] MEDS ORDERED: DEXTROSE 50% 25 GM/50 ML SYRINGE IV PRN (21:48)
[2016-12-18] MEDS ORDERED: BISACODYL 5 MG TABLET PO PRN (21:48)
[2016-12-18] MEDS ORDERED: ONDANSETRON 4 MG/2 ML VIAL IV PRN (21:48)
[2016-12-18] MEDS ORDERED: GLUCAGON 1 MG VIAL IM PRN (21:48)
[2016-12-18] MEDS ORDERED: MORPHINE 2 MG/1 ML SYRINGE IV PRN (21:48)
[2016-12-18] MEDS ORDERED: MAGNESIUM SULF RIDER 4 GM in PREMIX 1 EACH IV PRN (21:48)
[2016-12-18] MEDS: INSULIN LISPRO 100 UNIT/ML SUBCUT SCH (22:29)
[2016-12-18] MEDS: INSULIN GLARGINE 100 UNIT/ML SUBCUT SCH (22:35)
[2016-12-18] MEDS: ISOSORBIDE MONONITRATE 30 MG TABLET PO SCH (22:35)
[2016-12-18] MEDS: CARVEDILOL 3.125 MG TABLET PO SCH (22:35)
[2016-12-19 00:01] LABS: Magnesium 1.9 MG/DL (1.8-2.4); Thyroid Stimulating Hormone 2.53 uIU/ml (0.358-3.74)
[2016-12-19 00:12] LABS: Apearance,Urine CLOUDY (Clear); Bilirubin,Urine Negative (Negative); Blood, Urine Small mg/dL (Negative); Glucose,Urine (UA) Negative (Negative); Hyaline Casts,Urine 38 /LPF (0-3); Ketones,Urine Negative (Negative); Nitrite,Urine Negative (Negative); Protein,Urine >=500 MG/DL; RBC,Urine 24 /HPF (0-4); Squamous Epithelial Cell,Urine Occasional /HPF (0-10); Urine Color Yellow (Yellow); Urine Specific Gravity 1.005 (1.001-1.035); Urine Urobilinogen < 2.0 EU/DL (0.2-1.0); WBC,Urine 173 /HPF (0-6)
[2016-12-19 02:31] LABS: Osmolality,Calculated 295.6 MOS/KG (273-304); Potassium 3.5 MMOL/L (3.5-5.1)
[2016-12-19] MEDS ORDERED: PNEUMOCOCCAL VACCINE (13 VALENT) 0.5 ML SYRINGE IM ONE (06:30)
--- NOTE | 2016-12-19 07:30 | XRay Report ---
Exam: XR hip 2V BI Date: 12/18/2016 9:48 PM Indication: Pain secondary to fall Comparison: None Technical: AP oblique Left 2 views Findings: The cortical margins of the femoral head and neck are intact. Mild degenerative changes along the acetabulum. Rami are intact. Greater lesser trochanteric regions intact. Impression: No fracture dislocation with mild degenerative arthritic change. Right 2 views Findings: The pubic rami are intact. The femoral head and neck regions reveal no fracture. Mild degenerative arthritic changes along the acetabulum the greater lesser trochanteric regions are intact. Impression: 1. No fracture dislocation with mild degenerative arthritic change. PROCEDURE INTERPRETED AT [facility] DEPARTMENT OF RADIOLOGY Final Report Signed by: Dr. Sam Cottrell
--- NOTE | 2016-12-19 08:30 | XRay Report ---
Exam: XR knee 2V BI Date: 12/18/2016 9:48 PM Indication: Pain after falling Comparison: 05/09/2016 Technical: AP lateral Right two-view Findings: Spur formation is present along the lateral femoral condyle medial femoral condyle and lateral medial tibial plateau with joint space narrowing present. There is narrowing of patellofemoral joint space small joint effusion is present. No fracture dislocation Impression: Tricompartment degenerative osteoarthritis without fracture. Left 2V There is medial and lateral spurring along the femoral condyles and tibial plateau. There is calcification of the quadriceps tendon with spur formation superior inferior margin patella and small joint effusion. No fracture dislocation. Impression: 1. Tricompartment degenerative osteoarthritis with small joint effusion 2. Calcific tendinopathy of the quadriceps tendon. PROCEDURE INTERPRETED AT [facility] DEPARTMENT OF RADIOLOGY Final Report Signed by: Dr. Sam Cottrell
[2016-12-19] MEDS ORDERED: ASPIRIN CHEW 81 MG TABLET PO SCH (09:00)
[2016-12-19] MEDS: ISOSORBIDE MONONITRATE 30 MG TABLET PO SCH ×2 (09:46→21:49)
[2016-12-19] MEDS: PANTOPRAZOLE 40 MG TABLET PO SCH (09:46)
[2016-12-19] MEDS: INSULIN LISPRO 100 UNIT/ML SUBCUT SCH ×4 (09:46→21:48)
[2016-12-19] MEDS: FUROSEMIDE 40 MG/4 ML VIAL IV SCH ×2 (09:47→15:54)
[2016-12-19] MEDS: CARVEDILOL 3.125 MG TABLET PO SCH (09:47)
--- NOTE | 2016-12-19 09:55 | Orthopedic Consult Note ---
History of Present Illness Chief complaint: Bilateral knee pain History of present illness: Ms. Barnard is a 76 year old female who has had a long history of bilateral knee problems. She states that it dates back to when she was a teenager. 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 She states that she is essentially been wheelchair-bound for the last 3 years. She does have a cane and walker at home. She is able to walk short distances. She has had problems with recurrent falls. The last was Saturday where she injured her hips, knees and left shoulder. The patient lives at home with her daughter and 5 grandchildren. She she states that she is considering long term placement in the next several weeks. She is a poor historian. She states that she has received intramuscular injections in the past. She has not had any intra- articular injections. She denies any history of surgery to her knees. She has an allergy to ibuprofen. Home Medications Medication Instructions Recorded Confirmed Type Lisinopril 20 mg PO DAILY 01/12/16 12/18/16 History Albuterol Inhaler [Proventil 1 puff INH Q4H PRN 05/07/16 12/18/16 History Inhaler] Pantoprazole Tab [Protonix Tab] 40 mg PO DAILY #30 tablet 05/10/16 12/18/16 Rx Carvedilol [Coreg] 6.25 mg PO BID 12/18/16 12/18/16 History Furosemide 40 mg PO DAILY 12/18/16 12/18/16 History Insulin Aspart [NovoLOG FlexPen] 3 units SUBCUT TID W/MEALS 12/18/16 12/18/16 History Insulin Detemir [Levemir FlexPen] 15 units SUBCUT BEDTIME 12/18/16 12/18/16 History Isosorbide Mononitrate 10 mg PO BID 12/18/16 12/18/16 History Ranitidine Tab [Zantac Tab] 150 mg PO BID 12/18/16 12/18/16 History Allergies Allergy/AdvReac Type Severity Reaction Status Date / Time ibuprofen [From Motrin] Allergy Intermediate UNCONSCIOUS Verified 12/18/16 15:31 Medroxyprogesterone Allergy Intermediate RASH Verified 12/18/16 15:31 [From Provera] venom-honey bee Allergy DIFFICULTY Verified 12/18/16 15:31 [bee venom (honey bee)] SWALLOWING Medical,Surgical,& Family Hx - Medical History Cardio: History of: CHF, Hypertension No history of: CAD, [place] Psychological: No history of: Anxiety Disorders Endocrine: History of: Diabetes Mellitus (IDDM), Diabetes Mellitus (NIDDM) - Surgical History Orthopedic Surgeries: Patient denies;: Total Knee Replacement - Family History Family History: Reports;: Family Diabetes, Family Heart Disease, Family Hypertension - Social History Smoking Status: Never smoker Frequency of Alcohol Use: None Type of Drug Use: None Exam - Constitutional Vitals: Period Temp Pulse Resp BP Sys/Marte Pulse Ox Last 24 Hr 97.4 F-98.7 F 53-61 12-21 143-200/67-102 94-98 Left upper extremity shows some mild discomfort with active and passive range of motion of her shoulder. Strength about the shoulder girdle is 5 out of 5. She is nontender about her shoulder. There is no deformity. Her left upper extremity is neurovascularly intact. Exam bilateral lower extremities show no pain with logroll of her hips. She has bilateral knee flexion contractures with varus deformities. She has mild pain with gentle motion of her knees. Her knees are stable to varus valgus stress in extension and 30 of flexion. She can flex extend her toes. Sensation appears to be intact to light touch. She has scaling and wrinkling of the skin involving the distal third of her legs through feet. She has mild pedal edema today. Radiographs shoulder show some AC degenerative changes. No fracture seen. Subacromial and glenohumeral spaces appear to be well-maintained. Radiographs hips show maintenance of her joint space. No fracture seen. Radiographs bilateral knees show severe tricompartmental degenerative change worse in the medial compartment. She has underlying varus deformities. Impression: Left shoulder contusion. Bilateral severe knee osteoarthritis Plan: I agree with occupational therapy for her shoulder and physical therapy for her knees. Given her ibuprofen allergy and underlying medical problems, I would consider tramadol over [place] 5 for an analgesic. I have discussed arthroplasty as a solution for her pain and loss of function. Ms Barnard did not demonstrate interest. Results - Labs CBC & BMP: 12/18/16 16:36 12/19/16 01:16
[2016-12-19] MEDS ORDERED: traMADol 50 MG TABLET PO PRN (11:31)
--- NOTE | 2016-12-19 11:33 | Hospitalist Progress Note ---
Assessment and Plan (1) Acute on chronic diastolic (congestive) heart failure Status: Acute Assessment and plan: 1)CHF- diuresing which she is tolerating. No shortness of breath at rest. Continue meds, cardiology to see re:chest pain she had prior to admission 2)OA- knee with OA and it is weak and gives way. Her shoulder is tender butnot swollen, needs some OT to improve ROM. ortho to see. 3)Hypernatremia/hypokalemia- replaced, monitor on lasix. improved. 4)LISA on CKD- monitor on lasix, may be at new baseline. 5)UTI- large LE, many bact and WBCC on UA. culture pending, begin antibiotics. 6)HTN-on coreg, imdur, hydralazine with SBP 184. Will add norvasc. Current Visit: No (2) Osteoarthritis Status: Acute Current Visit: No Qualifiers: Osteoarthritis location: knee Osteoarthritis type: unspecified Laterality : right Qualified Code(s): M17.11 - Unilateral primary osteoarthritis, right knee (3) Insulin dependent diabetes mellitus Status: Chronic Current Visit: No (4) Hypertension Status: Acute Current Visit: No (5) Hypernatremia Status: Acute Current Visit: Yes (6) Hypokalemia Status: Acute Current Visit: Yes (7) Acute on chronic renal failure Status: Acute Current Visit: Yes Hospitalist: Subjective Interval history: Mrs Barnard reports pain in her right knee this morning and denies pain in her chest. She indicates some pain in her left shoulder. She fell in the bathroom and was wedged between fixtures and hurt her shoulder. She denies shortness of breath. Cards and ortho to see. Exam - Constitutional Vitals: Period Temp Pulse Resp BP Sys/Marte Pulse Ox Last 24 Hr 97.4 F-98.7 F 53-61 12-21 143-200/67-102 94-98 General appearance: no acute distress, over weight - Eye Eye exam: Present: EOMI. Absent: scleral icterus - Respiratory Respiratory exam: Present: clear to auscultation bilaterally, rales (few at bases bilaterally). Absent: wheezes - Cardiovascular Cardiovascular exam: Present: regular rate and rhythm - GI/Abdominal GI/Abdominal exam: Present: normal bowel sounds, soft - Extremities Exam Extremities exam: Present: edema (1+lower extremities. right knee with narrow joint space and effusion) - Neurological Exam Neurological exam: Present: alert, oriented X3 Results - Labs CBC & BMP: 12/18/16 16:36 12/19/16 01:16 Lab Results: I have reviewed the past 24 hour labs
[2016-12-19] MEDS ORDERED: amLODIPine 10 MG TABLET PO SCH (12:00)
--- NOTE | 2016-12-19 13:23 | Cardiology Consult Note ---
I, Florinda Calero RN, am scribing for, and in the presence of, Ziggy Jett MD 13:18. Assessment and Plan - Time spent with patient Time spent with patient: Greater than 30 minutes (Due to assessment, planning, documentation, medication review) (1) Acute on chronic renal failure Status: Acute Current Visit: Yes (2) Elevated troponin Status: Acute Assessment and plan: Troponins have been trivially elevated and flat. She has not had any symptoms consistent with angina. I do not think this is any sort of acute coronary syndrome. This may be related to her poorly controlled hypertension and chronic renal insufficiency. Current Visit: Yes (3) Hypokalemia Status: Acute Assessment and plan: She was given p.o. potassium yesterday, today it is 3.5. I will review her medications and make adjustments if needed. Current Visit: Yes (4) Dyspnea Status: Acute Assessment and plan: The patient had significant dyspnea and orthopnea yesterday. I am going to check an echocardiogram and a BNP. She has been started on diuresis and clinically seems improved today. Her last echocardiogram was generally benign. With her hypertension, it is possible she could have diastolic heart failure. Current Visit: Yes (5) Orthopnea Status: Acute Current Visit: Yes (6) Poorly-controlled hypertension Status: Acute Assessment and plan: I am going to make some adjustments in her medical regimen to try to get this improved. Current Visit: Yes (7) Falls frequently Status: Acute Assessment and plan: I am not sure the etiology of her falls. She reports that her "knees give out" . Physical therapy may be beneficial. Current Visit: Yes (8) Knee pain Status: Acute Assessment and plan: Orthopedics is seeing the patient for this. 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 Barnard is a 76 year old female who is a poor historian and it is difficult to understand her speech. There is no family at bedside to assist with history. She is unable to tell me any medical history or surgical history, but she does tell me that her mother and brother both had heart attacks. Dr. Mckeon saw her in the hospital in 2011 for chest tightness. At that time she had no high-risk evidence of cardiac disease and he recommended she follow with outpatient stress testing at his office. I cannot find any record of this being done, and she states she does not think she had this. She had an echocardiogram done May 07, 2016 with ejection fraction at 50-55%. She reports she is a former smoker, stating she smoked many years ago. Ms. Barnard says she fell yesterday morning and injured her knee. She also complains of pain in her left shoulder. She said it was a sharp pain that was relieved when she took a pain pill. She said yesterday it was tender to touch and it did hurt when she moved her arm. This morning she denies any pain to this area. She is not having any sort of anginal symptoms. She also reports yesterday that she was short of breath, mostly when lying down. She denies any shortness of breath at this time. She states she fell because her knees gave way on her. She denies any palpitations or syncope. Her troponins have been approximately 0.06 and stable. It should also be noted that her creatinine has been elevated at 1.90. Her potassium was 3.2 on admission, she was given p.o. potassium in the emergency department and this has improved to 3.5 today. She was given IV Lasix in the emergency department and has been started on Lasix 40 mg IV twice daily. Her blood pressures have been elevated and she has been started on hydralazine 50 mg p.o. 3 times daily. Venous Doppler was negative for DVT in bilateral lower extremities. Left shoulder x-ray was without any acute changes. Chest x-ray showed cardiomegaly with component of CHF and slight pulmonary edema right greater than on the left. CC: Samira Black MD - Home Medications and Allergies Home Medications: Home Medications Medication Instructions Recorded Confirmed Type Lisinopril 20 mg PO DAILY 01/12/16 12/18/16 History Albuterol Inhaler [Proventil 1 puff INH Q4H PRN 05/07/16 12/18/16 History Inhaler] Pantoprazole Tab [Protonix Tab] 40 mg PO DAILY #30 tablet 05/10/16 12/18/16 Rx Carvedilol [Coreg] 6.25 mg PO BID 12/18/16 12/18/16 History Furosemide 40 mg PO DAILY 12/18/16 12/18/16 History Insulin Aspart [NovoLOG FlexPen] 3 units SUBCUT TID W/MEALS 12/18/16 12/18/16 History Insulin Detemir [Levemir FlexPen] 15 units SUBCUT BEDTIME 12/18/16 12/18/16 History Isosorbide Mononitrate 10 mg PO BID 12/18/16 12/18/16 History Ranitidine Tab [Zantac Tab] 150 mg PO BID 12/18/16 12/18/16 History Allergies/Adverse Reactions: Allergies Allergy/AdvReac Type Severity Reaction Status Date / Time ibuprofen [From Motrin] Allergy Intermediate UNCONSCIOUS Verified 12/18/16 15:31 Medroxyprogesterone Allergy Intermediate RASH Verified 12/18/16 15:31 [From Provera] venom-honey bee Allergy DIFFICULTY Verified 12/18/16 15:31 [bee venom (honey bee)] SWALLOWING - Constitutional Constitutional: Present: as per HPI - EENT Nose, mouth and throat: Absent: dysphagia, epistaxis, headache(s), neck pain - Cardiovascular Cardiovascular: Present: dyspnea, edema, orthopnea. Absent: chest pain at rest , chest pain with activity, diaphoresis, dyspnea on exertion, radiating jaw, neck or arm pain, lightheadedness, palpitations - Respiratory Respiratory: Present: dyspnea. Absent: cough, hemoptysis, dyspnea on exertion, wheezing - Gastrointestinal Gastrointestinal: Absent: abdominal pain, constipation, cramping, hematemesis, hematochezia, melena, nausea, vomiting - Genitourinary Genitourinary: Absent: dysuria, hematuria - Musculoskeletal Musculoskeletal: Present: joint swelling, limited range of motion, muscle weakness. Absent: back pain - Neurological Neurological: Present: abnormal gait, abnormal speech, frequent falls. Absent: dizziness - Psychiatric Psychiatric: Absent: anxiety, depression Medical,Surgical,& Family Hx - Medical History Cardio: History of: CHF, Hypertension Endocrine: History of: Diabetes Mellitus (IDDM), Diabetes Mellitus (NIDDM) - Surgical History Surgical History: noncontributory (Patient is unable to give me any surgical history) - Family History Family History: Reports;: Family Diabetes, Family Heart Disease (Mother, brother ), Family Hypertension - Social History Smoking Status: Former smoker (She reports she smoked in the remote past) Have you smoked in the last 12 months: No Frequency of Alcohol Use: None Type of Drug Use: None Lives With:: Children Physical Examination Vital Signs Temp Pulse Resp BP Pulse Ox 97.4 F L 59 L 20 184/78 97 12/18/16 15:21 12/18/16 15:21 12/18/16 15:21 12/18/16 15:21 12/18/16 15:21 General: Present: Other (Obese, ill-appearing) HEENT: Present: PERRL, Mucus Membranes Moist Neck: Present: Supple Neck, Midline Trachea, No Bruit Cardiac: Present: Reg Rate and Rhythm, No Murmur, Bradycardia Lungs: Present: Decreased Breath Sounds, No Wheeze, Rales, Rhonchi Neuro: Present: Weakness (Lower extremity). Absent: Resting Tremor, Essential Tremor Abdomen: Present: Soft, Active Bowel Sounds, Non-Tender. Absent: Distended Skin: Present: Other (Thick dry alligator-like skin). Absent: Rash, Suspicious Lesions Musculoskeletal: Present: Decreased Range of Motion, Pain in Joint Gait: Present: Poor Gait Extremities: Present: Edema (Right lower extremity edema worse than on the left) . Absent: Normal Gait Result/EKG - Labs CBC & BMP: 12/18/16 16:36 12/19/16 01:16 Lab Results: I have reviewed the past 24 hour labs Labs: Laboratory Results - last 24 hr 12/18/16 12/18/16 12/18/16 16:36 16:36 16:36 WBC 9.2 RBC 3.98 Hgb 11.7 L Hct 35.0 L MCV 87.9 MCH 29 MCHC 33.4 RDW 14.7 Plt Count 252 MPV 10.2 Neut % (Auto) 69.7 Lymph % (Auto) 18.6 L [place] % (Auto) 5.4 Eos % (Auto) 5.2 Baso % (Auto) 0.8 Neut # (Auto) 6.4 Lymph # (Auto) 1.7 [place] # (Auto) 0.5 Eos # (Auto) 0.5 Baso # (Auto) 0.1 Immature Gran % 0.3 Nucleated RBC % 0.0 Immature Gran # 0.03 Nucleated RBCs # 0.00 Immature Plt Fraction 0.0 Sodium 148 H Potassium 3.2 L Chloride 112 H Carbon Dioxide 29 Anion Gap 10.2 BUN 19 H Creatinine 1.90 H GFR Calculation 29 BUN/Creatinine Ratio 10.00 Glucose 89 POC Glucose Hemoglobin A1c Calculated Osmolality 294.3 Calcium 8.5 Magnesium Total Bilirubin 0.70 AST 15 ALT 13 Alkaline Phosphatase 107 Troponin I 0.063 H B-Natriuretic Peptide 852 H Total Protein 6.3 L Albumin 2.4 L Globulin 3.9 H Albumin/Globulin Ratio 0.6 L Free T4 TSH 3rd Generation Urine Color Urine Appearance Urine pH Ur Specific [place] Urine Protein Urine Glucose (UA) Urine Ketones Urine Blood Urine Nitrate Urine Bilirubin Urine Urobilinogen Urine Leukocytes Urine RBC Urine WBC Urine WBC Clumps Ur Squamous Epith Cells Hyaline Casts Ur Culture Indicated? 12/18/16 12/18/16 12/18/16 17:10 21:38 22:51 WBC RBC Hgb Hct MCV MCH MCHC RDW Plt Count MPV Neut % (Auto) Lymph % (Auto) [place] % (Auto) Eos % (Auto) Baso % (Auto) Neut # (Auto) Lymph # (Auto) [place] # (Auto) Eos # (Auto) Baso # (Auto) Immature Gran % Nucleated RBC % Immature Gran # Nucleated RBCs # Immature Plt Fraction Sodium Potassium Chloride Carbon Dioxide Anion Gap BUN Creatinine GFR Calculation BUN/Creatinine Ratio Glucose POC Glucose 112 H 99 Hemoglobin A1c Calculated Osmolality Calcium Magnesium 1.9 Total Bilirubin AST ALT Alkaline Phosphatase Troponin I B-Natriuretic Peptide Total Protein Albumin Globulin Albumin/Globulin Ratio Free T4 TSH 3rd Generation 2.530 Urine Color Urine Appearance Urine pH Ur Specific [place] Urine Protein Urine Glucose (UA) Urine Ketones Urine Blood Urine Nitrate Urine Bilirubin Urine Urobilinogen Urine Leukocytes Urine RBC Urine WBC Urine WBC Clumps Ur Squamous Epith Cells Hyaline Casts Ur Culture Indicated? 12/18/16 12/18/16 12/18/16 22:51 22:51 23:00 WBC RBC Hgb Hct MCV MCH MCHC RDW Plt Count MPV Neut % (Auto) Lymph % (Auto) [place] % (Auto) Eos % (Auto) Baso % (Auto) Neut # (Auto) Lymph # (Auto) [place] # (Auto) Eos # (Auto) Baso # (Auto) Immature Gran % Nucleated RBC % Immature Gran # Nucleated RBCs # Immature Plt Fraction Sodium Potassium Chloride Carbon Dioxide Anion Gap BUN Creatinine GFR Calculation BUN/Creatinine Ratio Glucose POC Glucose Hemoglobin A1c Calculated Osmolality Calcium Magnesium Total Bilirubin AST ALT Alkaline Phosphatase Troponin I 0.059 H B-Natriuretic Peptide Total Protein Albumin Globulin Albumin/Globulin Ratio Free T4 1.28 TSH 3rd Generation Urine Color Yellow Urine Appearance Cloudy Urine pH 5.0 Ur Specific [place] 1.005 Urine Protein >=500 Urine Glucose (UA) Negative Urine Ketones Negative Urine Blood Small Urine Nitrate Negative Urine Bilirubin Negative Urine Urobilinogen < 2.0 H Urine Leukocytes Large H Urine RBC 24 Urine WBC 173 Urine WBC Clumps Many Ur Squamous Epith Cells Occasional Hyaline Casts 38 Ur Culture Indicated? Results to follow 12/19/16 12/19/16 12/19/16 01:16 01:16 01:16 WBC RBC Hgb Hct MCV MCH MCHC RDW Plt Count MPV Neut % (Auto) Lymph % (Auto) [place] % (Auto) Eos % (Auto) Baso % (Auto) Neut # (Auto) Lymph # (Auto) [place] # (Auto) Eos # (Auto) Baso # (Auto) Immature Gran % Nucleated RBC % Immature Gran # Nucleated RBCs # Immature Plt Fraction Sodium 146 H Potassium 3.5 Chloride 110 H Carbon Dioxide 30 Anion Gap 9.5 BUN 22 H Creatinine 1.90 H GFR Calculation 28 BUN/Creatinine Ratio 11.00 Glucose 147 H POC Glucose Hemoglobin A1c 8.0 H Calculated Osmolality 295.6 Calcium 8.0 L Magnesium Total Bilirubin AST ALT Alkaline Phosphatase Troponin I 0.057 H B-Natriuretic Peptide Total Protein Albumin Globulin Albumin/Globulin Ratio Free T4 TSH 3rd Generation Urine Color Urine Appearance Urine pH Ur Specific [place] Urine Protein Urine Glucose (UA) Urine Ketones Urine Blood Urine Nitrate Urine Bilirubin Urine Urobilinogen Urine Leukocytes Urine RBC Urine WBC Urine WBC Clumps Ur Squamous Epith Cells Hyaline Casts Ur Culture Indicated? 12/19/16 08:18 WBC RBC Hgb Hct MCV MCH MCHC RDW Plt Count MPV Neut % (Auto) Lymph % (Auto) [place] % (Auto) Eos % (Auto) Baso % (Auto) Neut # (Auto) Lymph # (Auto) [place] # (Auto) Eos # (Auto) Baso # (Auto) Immature Gran % Nucleated RBC % Immature Gran # Nucleated RBCs # Immature Plt Fraction Sodium Potassium Chloride Carbon Dioxide Anion Gap BUN Creatinine GFR Calculation BUN/Creatinine Ratio Glucose POC Glucose 151 H Hemoglobin A1c Calculated Osmolality Calcium Magnesium Total Bilirubin AST ALT Alkaline Phosphatase Troponin I B-Natriuretic Peptide Total Protein Albumin Globulin Albumin/Globulin Ratio Free T4 TSH 3rd Generation Urine Color Urine Appearance Urine pH Ur Specific [place] Urine Protein Urine Glucose (UA) Urine Ketones Urine Blood Urine Nitrate Urine Bilirubin Urine Urobilinogen Urine Leukocytes Urine RBC Urine WBC Urine WBC Clumps Ur Squamous Epith Cells Hyaline Casts Ur Culture Indicated? - Diagnostic Findings Procedure: Chest x-ray: report reviewed by me - EKG EKG results: interpreted by me EKG shows: bradycardia, sinus rhythm IJohnie Michael, MD, personally performed the services described in this documentation, ascribed by Florinda Calero RN in my presence, and it is both accurate and complete 323 .
--- NOTE | 2016-12-19 13:44 | Sleep Medicine Consult ---
Assessment and Plan (1) Unspecified sleep apnea Status: Acute Assessment and plan: Ms. Barnard had a positive screening for obstructive sleep apnea with a total score of 5 on the [employer] sleep questionnaire. She is a poor historian but does admit to shortness of breath while supine and nocturnia. She has a neck circumference of 18 and a BMI of 35.5. During her hospitalization, I will order an unattended home sleep study to rule out underlying sleep disorder. She verbalized understanding and does wish to proceed with testing. Current Visit: Yes History of Present Illness Chief complaint: SOB History of present illness: Ms. Barnard is a 76 year old female who was admitted through the emergency room yesterday after falling. She presented with complaints of knee pain, shoulder pain and shortness of breath. She was admitted and has undergone thorough evaluation from cardiology and orthopedics. She is not accompanied by any family today and is difficult to obtain a history from. When asked about her sleep schedule, she states that she goes to bed "late and awakens early". She typically sleeps around 5 hours and does not complain of excessive daytime fatigue or sleepiness. She has never been told that her snoring was loud or disruptive and does not awaken with any shortness of breath or gasping. She does sleep with 2 pillows under her head due to shortness of breath while supine. She admits to frequent urination during the night often as many as 5 times per night. She has a significant medical history including diabetes, hypertension arthritis and renal failure. She is seen routinely by the . She is unable to walk long distances and does require wheelchair for mobility. She lives with her grandchildren and admits to a very sedentary lifestyle. Home Medications Medication Instructions Recorded Confirmed Type Lisinopril 20 mg PO DAILY 01/12/16 12/18/16 History Albuterol Inhaler [Proventil 1 puff INH Q4H PRN 05/07/16 12/18/16 History Inhaler] Pantoprazole Tab [Protonix Tab] 40 mg PO DAILY #30 tablet 05/10/16 12/18/16 Rx Carvedilol [Coreg] 6.25 mg PO BID 12/18/16 12/18/16 History Furosemide 40 mg PO DAILY 12/18/16 12/18/16 History Insulin Aspart [NovoLOG FlexPen] 3 units SUBCUT TID W/MEALS 12/18/16 12/18/16 History Insulin Detemir [Levemir FlexPen] 15 units SUBCUT BEDTIME 12/18/16 12/18/16 History Isosorbide Mononitrate 10 mg PO BID 12/18/16 12/18/16 History Ranitidine Tab [Zantac Tab] 150 mg PO BID 12/18/16 12/18/16 History Allergies Allergy/AdvReac Type Severity Reaction Status Date / Time ibuprofen [From Motrin] Allergy Intermediate UNCONSCIOUS Verified 12/18/16 15:31 Medroxyprogesterone Allergy Intermediate RASH Verified 12/18/16 15:31 [From Provera] venom-honey bee Allergy DIFFICULTY Verified 12/18/16 15:31 [bee venom (honey bee)] SWALLOWING - Constitutional Constitutional: Present: frequent falls. Absent: daytime sleepiness, fatigue, headache(s), stops breathing during sleep - EENT Nose, mouth and throat: Absent: nasal congestion, sinus pressure - Cardiovascular Cardiovascular: Present: dyspnea on exertion, orthopnea. Absent: chest pain at rest, chest pain with activity - Respiratory Respiratory: Absent: cough, wheezing, snoring - Gastrointestinal Gastrointestinal: Absent: abdominal pain, constipation, diarrhea, heartburn, nausea - Genitourinary Genitourinary: Present: urinary frequency - Musculoskeletal Musculoskeletal: Present: arthralgias, limited range of motion - Neurological Neurological: Present: dizziness, frequent falls. Absent: syncope - Psychiatric Psychiatric: Absent: anxiety, depression Exam ([place]) H&P - Constitutional Vitals: Period Temp Pulse Resp BP Sys/Marte Pulse Ox Last 24 Hr 97.4 F-98.7 F 53-61 12-21 143-200/67-102 94-98 General appearance: no acute distress, over weight - Head Head exam: Present: normal inspection, normocephalic - Eye Pupils: Present: [place] - ENT ENT exam: Present: other (Mallampati class III) - Expanded ENT Exam ENT Exam Mouth exam: Present: dry mucosa Teeth exam: Present: other (missing teeth) Throat exam: Absent: post pharyngeal edema, post pharyngeal erythema - Neck Neck exam: Absent: lymphadenopathy, thyromegaly - Respiratory Respiratory exam: Present: decreased breath sounds. Absent: rales, rhonchi, wheezes - Cardiovascular Cardiovascular exam: Present: regular rate and rhythm. Absent: diastolic murmur , systolic murmur - GI/Abdominal GI/Abdominal exam: Present: normal bowel sounds, soft. Absent: tenderness - Extremities Exam Extremities exam: Present: normal capillary refill, edema (trace edema). Absent : calf tenderness - Psychiatric Psychiatric exam: Present: normal affect, normal mood. Absent: depressed - Skin Skin exam: Present: warm, dry Medical,Surgical,& Family Hx - Medical History Cardio: History of: CHF, Hypertension No history of: CAD, CA Psychological: No history of: Anxiety Disorders Endocrine: History of: Diabetes Mellitus (IDDM), Diabetes Mellitus (NIDDM) - Surgical History Orthopedic Surgeries: Patient denies;: Total Knee Replacement - Family History Family History: Reports;: Family Diabetes, Family Heart Disease (Mother, brother ), Family Hypertension - Social History Smoking Status: Former smoker (She reports she smoked in the remote past) Frequency of Alcohol Use: None Type of Drug Use: None Results - Labs CBC & BMP: 12/18/16 16:36 12/19/16 01:16
--- NOTE | 2016-12-19 16:49 | Order Completion Report ---
See report scanned to EMR
--- NOTE | 2016-12-19 16:57 | CT Report ---
Exam: CT head without intravenous contrast Clinical History: 76 years Female left-sided weakness Technique: Axial computed tomography images of the head/brain without intravenous contrast. The CT exam was performed using one or more of the following dose reduction techniques: Automated exposure control, adjustment of the mA and/or kV according to patient size, or use of iterative reconstruction technique. Comparison: No relevant comparisons Findings: Brain: Mild microangiopathic small vessel ischemic changes within the deep white matter. Hathaway-white matter distinction maintained. No mass effect. No intra or extra-axial hemorrhage. Ventricles: Unremarkable. No ventriculomegaly. Bones/joints: Calvarium is intact Soft tissues: Unremarkable Sinuses: No active paranasal sinus process Mastoid air cells: Unremarkable as visualized. Impression: 1. No acute intracranial abnormality. PROCEDURE INTERPRETED AT [facility] DEPARTMENT OF RADIOLOGY Final Report Signed by: Yumiko Hathaway MD
--- NOTE | 2016-12-19 16:57 | Event Note ---
critical care 30 minutes: \Called to see patient for stroke alert. She is awake and alert. She told her nurse a few minutes ago that her left arm became numb and flaccid just after lunch today (around 5 hours ago). She denies pain other than in her knee. Her BP has been elevated and at this time it is 150/75 with other vitals WNL. She cannot move her left arm and when I lift it and let it go it falls on her or to her side- she does not appear to have any use of her arm. Her fingers are curled and she did faintly squeeze my hand briefly but was not able to repeat that or to open her hand. Her lower extremities are weak and she has a functional quadriplegia- she is wheelchair bound at baseline. She does not withdraw to pain with her left arm. Her face is symmetric, tongue midline, sensation intact, pupils equal and responsive to light. Head CT report pending. consult to neuro. check lipids. PT and OT already seeing her (OT notes from earlier report she had movement in that arm). On ASA 81mg. If no sign of bleed, change to plavix. get carotid US in am. BP meds added and adjusted today.
[2016-12-19] MEDS ORDERED: SODIUM CHLORIDE 0.9% 1,000 ML IV SCH (17:00)
[2016-12-19 17:07] LABS: Basophils # 0.1 10*3/uL (0.0-0.2); Basophils % 0.7 % (0.0-0.8); Hematocrit 32.2 VOL% (35.7-47.0); Hemoglobin 10.8 GM/DL (12.0-16.0); Immature Granulocytes % 0.4 %; Immature Granulocytes Absolute 0.04 #; Lymphocytes # 1.6 10*3/uL (1.4-4.0); Lymphocytes % 16.8 % (21.3-54.2); Mean Corpuscular HGB Conc 33.5 GM/DL (32-36); Mean Corpuscular Hemoglobin 30 PG (27-34); Mean Platelet Volume 10.4 FL (9.6-12.0); Monocytes # 0.6 10*3/uL (0.11-0.8); Monocytes % 5.8 % (1.7-12.7); Neutrophils # 6.4 10*3/uL (1.4-7.4); Neutrophils % 66.3 % (38.7-73.9); Platelet Count 245 T/CUMM (130-400); Red Blood Count 3.66 MC/CUMM (3.8-5.5); Red Cell Distribution Width 14.8 % (9.3-17.3); White Blood Count 9.6 T/CUMM (4-12)
[2016-12-19 17:16] LABS: INR 1.1; PT Patient Result 11.1 SECS; Partial Thromboplastin Time 31.6 SECS (0-40)
[2016-12-19 17:28] LABS: Alanine Aminotransferase 12 U/L (13-56); Albumin 2.2 G/DL (3.4-5.0); Alkaline Phosphatase 108 U/L (45-117); Aspartate Amino Transferase 13 U/L (0-37); Bilirubin,Total < 0.39 MG/DL (0.2-1.0); Blood Urea Nitrogen 24 MG/DL (7-18); Calcium 8.1 MG/DL (8.5-10.1); Glucose 116 MG/DL (74-106); Osmolality,Calculated 290.8 MOS/KG (273-304); Potassium 3.5 MMOL/L (3.5-5.1); Sodium 144 MMOL/L (136-145)
[2016-12-19 17:29] LABS: Risk Ratio 3.79; VLDL CHOLESTEROL 22.4 MG/DL
[2016-12-19] MEDS: CARVEDILOL 6.25 MG TABLET PO SCH (18:33)
[2016-12-19 18:59] LABS: Apearance,Urine CLEAR (Clear); Bilirubin,Urine Negative (Negative); Blood, Urine Small mg/dL (Negative); Glucose,Urine (UA) Negative (Negative); Ketones,Urine Negative (Negative); Mucus,Urine Occasional /LPF (Occasional); Nitrite,Urine Negative (Negative); Protein,Urine 100 MG/DL; RBC,Urine 3 /HPF (0-4); Urine Color Straw (Yellow); Urine Specific Gravity 1.005 (1.001-1.035); Urine Urobilinogen < 2.0 EU/DL (0.2-1.0); WBC,Urine 3 /HPF (0-6)
[2016-12-19] MEDS: INSULIN GLARGINE 100 UNIT/ML SUBCUT SCH (21:48)
[2016-12-19] MEDS: ENOXAPARIN 30 MG/0.3 ML SYRINGE SUBCUT SCH (21:50)
[2016-12-20 06:59] LABS: Calcium 8.3 MG/DL (8.5-10.1); Osmolality,Calculated 292.7 MOS/KG (273-304); Potassium 3.6 MMOL/L (3.5-5.1)
[2016-12-20] MEDS ORDERED: SODIUM CHLORIDE 0.9% 500 ML IV ONE (08:30)
--- NOTE | 2016-12-20 09:13 | Neurology Consult Note ---
History of Present Illness History of present illness: 76-year-old right-handed lady with past medical history significant for diabetes, hypertension, CHF admitted to the hospital with recurrent chest pain for last several days. She was doing okay up until yesterday when she was found slightly decreasing level of consciousness and significantly left-sided weakness. Never had a stroke in her life. She had some difficulty with speech as well. By the time she was found this way she was out of the window for TPA. A CT of the head revealed no acute abnormalities. Cardiology has been consulted. Patient denies any vision difficulties. Home Medications Medication Instructions Recorded Confirmed Type Lisinopril 20 mg PO DAILY 01/12/16 12/18/16 History Albuterol Inhaler [Proventil 1 puff INH Q4H PRN 05/07/16 12/18/16 History Inhaler] Pantoprazole Tab [Protonix Tab] 40 mg PO DAILY #30 tablet 05/10/16 12/18/16 Rx Carvedilol [Coreg] 6.25 mg PO BID 12/18/16 12/18/16 History Furosemide 40 mg PO DAILY 12/18/16 12/18/16 History Insulin Aspart [NovoLOG FlexPen] 3 units SUBCUT TID W/MEALS 12/18/16 12/18/16 History Insulin Detemir [Levemir FlexPen] 15 units SUBCUT BEDTIME 12/18/16 12/18/16 History Isosorbide Mononitrate 10 mg PO BID 12/18/16 12/18/16 History Ranitidine Tab [Zantac Tab] 150 mg PO BID 12/18/16 12/18/16 History Allergies Allergy/AdvReac Type Severity Reaction Status Date / Time ibuprofen [From Motrin] Allergy Intermediate UNCONSCIOUS Verified 12/18/16 15:31 Medroxyprogesterone Allergy Intermediate RASH Verified 12/18/16 15:31 [From Provera] venom-honey bee Allergy DIFFICULTY Verified 12/18/16 15:31 [bee venom (honey bee)] SWALLOWING 12 point system: reviewed and no additional remarkable complaints except as stated Medical,Surgical,& Family Hx - Medical History Cardio: History of: CHF, Hypertension No history of: CAD, GA Psychological: No history of: Anxiety Disorders Endocrine: History of: Diabetes Mellitus (IDDM), Diabetes Mellitus (NIDDM) - Surgical History Orthopedic Surgeries: Patient denies;: Total Knee Replacement - Family History Family History: Reports;: Family Diabetes, Family Heart Disease (Mother, brother ), Family Hypertension - Social History Smoking Status: Former smoker Frequency of Alcohol Use: None Type of Drug Use: None Exam - Constitutional Vitals: Period Temp Pulse Resp BP Sys/Marte Pulse Ox Last 24 Hr 97.5 F-98.4 F 54-72 10-23 95-195/36-87 96-100 Exam: GENERAL: Patient is in no acute distress. NECK: Neck is supple. There is no JVD. No carotid bruits present. No thyroid masses. CVS: First and second heart sounds are normal. There is no S3 present. Regular rate and rhythm. RESPIRATORY: Lungs are clear to auscultation without any rales or rhonchi. ABDOMEN: Soft and non-tender. Bowel sounds are present. There is no hepatosplenomegaly. EXT: There is no palpable edema. Peripheral pulses are present. Skin: No rashes Central Nervous system: General: Alert, awake and Oriented x 3 Speech: Fluent Comprehension: Intact and normal Facial expressions: Normal Cranial Nerves: CN1/Olfactory: Normal CN II/ Optic: Normal, Visual Glez unreliable CN III, and : [place] & EOMI CN V: Normal & intact CN VII: Left central facial weakness CNVIII: Normal CN XI/X/XI/XII: Intact and Normal Motor: Bulk and Tone is normal. Strength in the right 5/5 Strength in the left 1-2/5 Sensory: Decreased for all the modalities of PP, LT and temp sense Reflexes: 1+ and symmetrical Cerebellar function: Normal finger to nose and heel to petersen testing in the right and could not assess in the left. Toes: Positive Babinski in the left Gait: Cannot be tested Assessment: Acute CVA Risk factors: Diabetes, CHF, hyperlipidemia, hypertension and advanced age Plan: Continue Plavix and Lovenox for now Agree with MRI and MRA Echocardiogram Lipid panel PT OT and ST Consult TMR Thank you for the consult Results - Labs CBC & BMP: 12/19/16 16:58 12/20/16 05:02
--- NOTE | 2016-12-20 09:39 | Cardiology Progress Note ---
I, Florinda Calero RN, am scribing for, and in the presence of, Ziggy Jett MD 09:37. Assessment and Plan (1) Acute on chronic renal failure Status: Acute Current Visit: Yes (2) Elevated troponin Status: Acute Assessment and plan: Troponins have been trivially elevated and flat. She has not had any symptoms consistent with angina. I do not think this is any sort of acute coronary syndrome. This may be related to her poorly controlled hypertension and chronic renal insufficiency. It is possible for there to be a slight bump in cardiac troponin associated with stroke as well. Current Visit: Yes (3) Hypokalemia Status: Acute Assessment and plan: Potassium today is 3.6. Current Visit: Yes (4) Dyspnea Status: Acute Assessment and plan: The patient had significant dyspnea and orthopnea yesterday. Her echocardiogram showed normal left ventricular systolic function and no significant valvular disease. With her hypertension, it is possible she could have a degree of diastolic heart failure. Current Visit: Yes (5) Falls frequently Status: Acute Assessment and plan: Yesterday the patient reported that her "knees give out". In light of her new stroke, I wonder if this has been a source/contribute for her recent falls. Current Visit: Yes (6) Knee pain Status: Acute Assessment and plan: Orthopedics is seeing the patient for this. Current Visit: Yes (7) Orthopnea Status: Acute Current Visit: Yes (8) Poorly-controlled hypertension Status: Acute Assessment and plan: Adjustments were made in her medications, her blood pressure has improved today. Current Visit: Yes (9) Shoulder pain, left Status: Acute Current Visit: Yes Cardiology - PN: Subj Interval history: Program Assistant: Dr. Mckeon in the remote past PCP: [facility] Summary: Ms. Barnard is a 76 year old female who is a poor historian and it is difficult to understand her speech. Dr. Mckeon saw her in the hospital in 2011 for chest tightness. At that time she had no high-risk evidence of cardiac disease and he recommended she follow with outpatient stress testing at his office. I cannot find any record of this being done, and she states she does not think she had this. She had an echocardiogram done May 07, 2016 with ejection fraction at 50-55%. She complains of pain in her left shoulder started after a fall. She is not having any sort of anginal symptoms. She also reports that she was short of breath prior to admission, mostly when lying down. She states she fell because her knees gave way on her. She denies any palpitations or syncope. Her troponins have been approximately 0.06 and stable. It should also be noted that her creatinine has been elevated at 1.90. Her potassium was 3.2 on admission, she was given p.o. potassium in the emergency department. She was given IV Lasix in the emergency department and has been started on Lasix 40 mg IV twice daily. Her blood pressures have been elevated and she has been started on hydralazine 50 mg p.o. 3 times daily. Venous Doppler was negative for DVT in bilateral lower extremities. Left shoulder x-ray was without any acute changes. Chest x-ray showed cardiomegaly with component of CHF and slight pulmonary edema right greater than on the left. December 20, 2016: Ms. Barnard was transferred to the intensive care unit last night for a stroke alert was called. She reportedly cannot feel her left arm and had no use of it. CT of the head done last night was with no acute findings. She is scheduled for an MRI of the brain today and neurology has been consulted. This morning I cannot get her to speak, she will nod or shake her head. She indicates she is not having any chest pain or shortness of breath. She is unable to squeeze my hand with her left hand or move her left arm. ekg monitor currently shows sinus bradycardia with heart rates in the 50s. O2 sat 96% on room air. Her creatinine has elevated to 2.2, her Lasix has been placed on hold and she is currently receiving IV fluid bolus. Echocardiogram with ejection fraction 55-60%. Exam (Progress Note) - Constitutional Vitals: Period Temp Pulse Resp BP Sys/Marte Pulse Ox Last 24 Hr 97.5 F-98.4 F 54-72 10-23 95-195/36-87 96-100 General appearance: no acute distress, over weight - Head Head exam: Absent: abrasion, hematoma - Eye Eye exam: Absent: periorbital swelling, laceration to eyelids - Respiratory Respiratory exam: Present: rales. Absent: accessory muscle use, chest wall tenderness - Cardiovascular Cardiovascular exam: Present: bradycardia, regular rate and rhythm - GI/Abdominal GI/Abdominal exam: Present: normal bowel sounds, soft. Absent: distended, tenderness - Extremities Exam Extremities exam: Present: edema (Right lower extremity edema worse on the left) - Neurological Exam Neurological exam: Present: alert, other (Unable to determine orientation) - Skin Skin exam: Present: warm, dry Result/EKG - Labs CBC & BMP: 12/19/16 16:58 12/20/16 05:02 Lab Results: I have reviewed the past 24 hour labs Labs: Laboratory Results - last 24 hr 12/19/16 12/19/16 12/19/16 10:55 16:12 16:58 WBC 9.6 RBC 3.66 L Hgb 10.8 L Hct 32.2 L MCV 88.0 MCH 30 MCHC 33.5 RDW 14.8 Plt Count 245 MPV 10.4 Neut % (Auto) 66.3 Lymph % (Auto) 16.8 L [place] % (Auto) 5.8 Eos % (Auto) 10.0 Baso % (Auto) 0.7 Neut # (Auto) 6.4 Lymph # (Auto) 1.6 [place] # (Auto) 0.6 Eos # (Auto) 1.0 H Baso # (Auto) 0.1 Immature Gran % 0.4 Nucleated RBC % 0.0 Immature Gran # 0.04 Nucleated RBCs # 0.00 Immature Plt Fraction 0.0 INR PT Patient/Control Mix Circ Anticoag PTT Sodium Potassium Chloride Carbon Dioxide Anion Gap BUN Creatinine GFR Calculation BUN/Creatinine Ratio Glucose POC Glucose 252 H 135 H Calculated Osmolality Calcium Total Bilirubin AST ALT Alkaline Phosphatase Total Protein Albumin Globulin Albumin/Globulin Ratio Triglycerides Cholesterol LDL Cholesterol VLDL Cholesterol HDL Cholesterol Heart Disease Risk Ratio Urine Color Urine Appearance Urine pH Ur Specific [place] Urine Protein Urine Glucose (UA) Urine Ketones Urine Blood Urine Nitrate Urine Bilirubin Urine Urobilinogen Urine Leukocytes Urine RBC Urine WBC Urine Mucus Ur Culture Indicated? 12/19/16 12/19/16 12/19/16 16:58 16:58 16:58 WBC RBC Hgb Hct MCV MCH MCHC RDW Plt Count MPV Neut % (Auto) Lymph % (Auto) [place] % (Auto) Eos % (Auto) Baso % (Auto) Neut # (Auto) Lymph # (Auto) [place] # (Auto) Eos # (Auto) Baso # (Auto) Immature Gran % Nucleated RBC % Immature Gran # Nucleated RBCs # Immature Plt Fraction INR 1.1 PT Patient/Control Mix 11.1 Circ Anticoag PTT 31.6 Sodium 144 Potassium 3.5 Chloride 109 H Carbon Dioxide 27 Anion Gap 11.5 BUN 24 H Creatinine 1.90 H GFR Calculation 28 BUN/Creatinine Ratio 12.00 Glucose 116 H POC Glucose Calculated Osmolality 290.8 Calcium 8.1 L Total Bilirubin < 0.39 AST 13 ALT 12 L Alkaline Phosphatase 108 Total Protein 6.0 L Albumin 2.2 L Globulin 3.8 H Albumin/Globulin Ratio 0.5 L Triglycerides 112 Cholesterol 129 LDL Cholesterol 80.0 VLDL Cholesterol 22.4 HDL Cholesterol 34 L Heart Disease Risk Ratio 3.79 Urine Color Urine Appearance Urine pH Ur Specific [place] Urine Protein Urine Glucose (UA) Urine Ketones Urine Blood Urine Nitrate Urine Bilirubin Urine Urobilinogen Urine Leukocytes Urine RBC Urine WBC Urine Mucus Ur Culture Indicated? 12/19/16 12/19/16 12/20/16 17:54 21:21 05:02 WBC RBC Hgb Hct MCV MCH MCHC RDW Plt Count MPV Neut % (Auto) Lymph % (Auto) [place] % (Auto) Eos % (Auto) Baso % (Auto) Neut # (Auto) Lymph # (Auto) [place] # (Auto) Eos # (Auto) Baso # (Auto) Immature Gran % Nucleated RBC % Immature Gran # Nucleated RBCs # Immature Plt Fraction INR PT Patient/Control Mix Circ Anticoag PTT Sodium 145 Potassium 3.6 Chloride 110 H Carbon Dioxide 28 Anion Gap 10.6 BUN 27 H Creatinine 2.20 H GFR Calculation 23 BUN/Creatinine Ratio 12.00 Glucose 98 POC Glucose 173 H Calculated Osmolality 292.7 Calcium 8.3 L Total Bilirubin AST ALT Alkaline Phosphatase Total Protein Albumin Globulin Albumin/Globulin Ratio Triglycerides Cholesterol LDL Cholesterol VLDL Cholesterol HDL Cholesterol Heart Disease Risk Ratio Urine Color Straw Urine Appearance Clear Urine pH 6.0 Ur Specific [place] 1.005 Urine Protein 100 Urine Glucose (UA) Negative Urine Ketones Negative Urine Blood Small Urine Nitrate Negative Urine Bilirubin Negative Urine Urobilinogen < 2.0 H Urine Leukocytes Trace Urine RBC 3 Urine WBC 3 Urine Mucus Occasional Ur Culture Indicated? Not indicated 12/20/16 08:40 WBC RBC Hgb Hct MCV MCH MCHC RDW Plt Count MPV Neut % (Auto) Lymph % (Auto) [place] % (Auto) Eos % (Auto) Baso % (Auto) Neut # (Auto) Lymph # (Auto) [place] # (Auto) Eos # (Auto) Baso # (Auto) Immature Gran % Nucleated RBC % Immature Gran # Nucleated RBCs # Immature Plt Fraction INR PT Patient/Control Mix Circ Anticoag PTT Sodium Potassium Chloride Carbon Dioxide Anion Gap BUN Creatinine GFR Calculation BUN/Creatinine Ratio Glucose POC Glucose 97 Calculated Osmolality Calcium Total Bilirubin AST ALT Alkaline Phosphatase Total Protein Albumin Globulin Albumin/Globulin Ratio Triglycerides Cholesterol LDL Cholesterol VLDL Cholesterol HDL Cholesterol Heart Disease Risk Ratio Urine Color Urine Appearance Urine pH Ur Specific [place] Urine Protein Urine Glucose (UA) Urine Ketones Urine Blood Urine Nitrate Urine Bilirubin Urine Urobilinogen Urine Leukocytes Urine RBC Urine WBC Urine Mucus Ur Culture Indicated? - Diagnostic Findings Procedure: Chest x-ray: report reviewed by me - EKG EKG results: interpreted by me EKG shows: bradycardia, sinus rhythm IJohnie Michael, MD, personally performed the services described in this documentation, ascribed by Florinda Calero RN in my presence, and it is both accurate and complete 939 .
[2016-12-20] MEDS: ISOSORBIDE MONONITRATE 30 MG TABLET PO SCH ×2 (09:46→20:37)
[2016-12-20] MEDS: CLOPIDOGREL 75 MG TABLET PO SCH (09:46)
[2016-12-20] MEDS: PANTOPRAZOLE 40 MG TABLET PO SCH (09:46)
[2016-12-20] MEDS: CARVEDILOL 6.25 MG TABLET PO SCH (09:48)
[2016-12-20] MEDS: INSULIN LISPRO 100 UNIT/ML SUBCUT SCH ×4 (09:48→20:36)
--- NOTE | 2016-12-20 10:05 | Quality Management ---
This patient has an LDL level of 80 this admission and has a diagnosis of Acute CVA. To meet the Get With The Guidelines- Stroke requirements, Element definition from Manual for National [facility] Inpatient Quality Measures, They will need a statin medication prescibed before discharge or a documented contraindication. Reasons for not prescribing a statin medication at discharge: Statin medication allergy Other reasons documented by physician/advanced practice nurse/physician physician assistant primary care (physician/GRAIN TRADER/PA) or pharmacist LDL-c less than 70 mg/dL Thank You, Yulisa Scott RN Clinical Monitoring Engineer W [phone] The patient will be started on Lipitor 40 mg nightly. MTDD
--- NOTE | 2016-12-20 10:45 | Hospitalist Progress Note ---
Assessment and Plan (1) Acute ischemic stroke Status: Acute Assessment and plan: Neurology consult reviewed. MRI pending Continue Plavix Start Lipitor Control blood pressure PT OT consult Further recommendations depend on her response to therapy Achieve good glucose control Obtain hemoglobin A1c Current Visit: Yes (2) Dyslipidemia Status: Acute Current Visit: Yes (3) Acute on chronic renal failure Status: Acute Current Visit: Yes Qualifiers: Chronic kidney disease stage: stage 4 (severe) (4) Diastolic CHF Status: Acute Current Visit: Yes Qualifiers: Congestive heart failure chronicity: acute on chronic Qualified Code(s): I50.33 - Acute on chronic diastolic (congestive) heart failure (5) DM2 (diabetes mellitus, type 2) Status: Chronic Current Visit: Yes Qualifiers: Diabetes mellitus complication status: with kidney complications Diabetes mellitus complication detail: with chronic kidney disease Diabetes mellitus termite renewal inspector insulin use: without termite renewal inspector use Chronic kidney disease stage: stage 3 (moderate) Qualified Code(s): E11.22 - Type 2 diabetes mellitus with diabetic chronic kidney disease; N18.3 - Chronic kidney disease, stage 3 ( moderate) Hospitalist: Subjective Interval history: Patient seen and examined. Acute events overnight noted. Case discussed with nursing staff. Labs reviewed. Mr. miller was transferred to the ICU late yesterday afternoon after a stroke alert was called. She appears to have a new neurological deficits with left-sided weakness and hemiparesis involving the upper and lower extremity as well as difficulty with speech. She was seen this morning with Dr. Quarles. She is on Plavix and will be started on Lipitor. MRI is pending. Exam - Constitutional Vitals: Period Temp Pulse Resp BP Sys/Marte Pulse Ox Last 24 Hr 97.5 F-98.4 F 54-72 10- 95-195/36-87 96-100 Exam: Constitutional System: No distress. No tremulousness. Head: Normocephalic, atraumatic. Ears, Nose and Throat System: No pain or tenderness. No epistaxis or discharge Eyes System: Pupils equal, round, and reactive. Extraocular muscles intact. Neck: Supple, without adenopathy, No jugular venous distention. No thyromegaly, neck mass, or prior surgery apparent. Respiratory System: Chest clear to auscultation. Cardiovascular System: Heart with regular rate and rhythm. No murmur. GI System: Abdomen soft, nontender. Normo active bowel sounds present. Musculoskeletal System: limbs with no pedal edema. Full distal pulses. Normal capillary refill. Neurological System: Left upper and lower extremity weakness and paralysis. Speech is slurred. Patient is awake and alert. Psychiatric System: Conversation is difficult to understand secondary to neurological deficits - Expanded ENT Exam Mouth exam: Present: dry mucosa Teeth exam: Present: other (missing teeth) Throat exam: Absent: post pharyngeal edema, post pharyngeal erythema Results - Labs CBC & BMP: 12/19/16 16:58 12/20/16 05:02 Lab Results: I have reviewed the past 24 hour labs
--- NOTE | 2016-12-20 12:33 | Magnetic Resonance Report ---
History: Left arm flaccidity. Left-sided weakness Date: 12/20/2016 Study: MRI brain without contrast Comparison exam: No previous MRI brain available for comparison The brain was imaged in 3 planes on the 1.2 Bianca open magnet without IV contrast, to include diffusion, T2, FLAIR, gradient echo, and T1-weighted sequences. No IV contrast was given. The patient was originally admitted on December 18, 2016. There is a 14 mm area of restricted diffusion compatible with acute ischemia between 6 hours and 4 days old in the frank at and to the right of midline anteriorly. There is also small focus of acute ischemia of similar nature measuring 5 mm in the right thalamus. Consider basilar artery level ischemia. There is no parenchymal hemorrhage. There is no area of mass effect. There is a small amount of patchy increased FLAIR and T2 signal in the periventricular white matter without mass effect compatible with changes of small vessel disease. There is normal flow void in the superior sagittal sinus. There is no gross flow abnormality in [place] area. The basilar artery is patent. There is no Chiari I malformation. The patient has a so-called empty pituitary sella. There is evidence of remote cataract surgery bilaterally. Impression: Acute ischemia involving the frank and right thalamus. No parenchymal hemorrhage. Periventricular white matter. PROCEDURE INTERPRETED AT [facility] DEPARTMENT OF RADIOLOGY Final Report Signed by: Dr. Meeta Shrestha
--- NOTE | 2016-12-20 12:38 | Magnetic Resonance Report ---
History: Left arm flaccidity. Left-sided weakness Date: 12/20/2016 Study: MR angiogram neck without IV contrast Comparison exam: No previous similar A 3-D [id number] MRA of the neck was performed without IV contrast on the 1.2 Bianca open magnet. In addition to axial source images, 3-D maximum intensity projection images were also archived and evaluated. There is normal arch anatomy. There is no high-grade stenosis at the origins of the great vessels. There is no high-grade common carotid artery stenosis. There is 13% diameter reduction narrowing of the right internal carotid artery. The normal right ICA measures 4.5 mm diameter. There is 71% diameter reduction narrowing or greater of the left internal carotid artery. The normal left ICA measures 3.1 mm diameter. There is gross patency of the external carotid arteries bilaterally. The vertebral arteries are grossly patent bilaterally. Impression: 71% diameter reduction narrowing of the left internal carotid artery and 13% diameter reduction narrowing of the right internal carotid artery using NASCET criteria PROCEDURE INTERPRETED AT [facility] DEPARTMENT OF RADIOLOGY Final Report Signed by: Dr. Meeta Shrestha
--- NOTE | 2016-12-20 13:20 | Sleep Medicine Progress Note ---
Assessment and Plan (1) Unspecified sleep apnea Status: Acute Assessment and plan: Her HST did suggest severe central sleep apnea. This will need to be confirmed within lab diagnostic sleep study followed by titration effort. Meanwhile, we will empirically place her on auto titration BiPAP. Current Visit: Yes Sleep Medicine Subjective Interval history: Patient did undergo home sleep testing last night and was found to have very severe sleep apnea that appeared to be central sleep apnea primarily. Her respiratory event index was 89. Given that this appeared to be central sleep apnea, she really needs to be reevaluated with an in lab polysomnogram. We will go ahead and empirically try her on auto titration BiPAP tonight with in- line O2 is needed. Follow-up of results will be forthcoming. Findings of her sleep test were described to her in terms that she could understand. Exam (Progress Note) - Constitutional Vitals: Period Temp Pulse Resp BP Sys/Marte Pulse Ox Last 24 Hr 97.4 F-98.4 F 54-72 10-23 95-167/36-72 96-100 Exam: Patient sleeping but aroused and responded appropriately. Room air O2 sats 92% . Pupils equal round reactive. Oropharynx with a class IV Mallampati exam. Neck supple without adenopathy or thyromegaly. Chest with symmetrical breath sounds without wheeze or rhonchi.. Cardiac exam reveals regular rhythm without murmur or gallop. Abdomen soft nontender extremities without increased edema. Results - Labs CBC & BMP: 12/19/16 16:58 12/20/16 05:02 Lab Results: I have reviewed the past 24 hour labs Labs: TSH within normal limits
[2016-12-20] MEDS ORDERED: SKIN HEALING OINT (AQUAPHOR) 50 GM TUBE TOP PRN (18:13)
[2016-12-20] MEDS: ATORVASTATIN 40 MG TABLET PO SCH (20:38)
[2016-12-20] MEDS: CARVEDILOL 3.125 MG TABLET PO SCH (20:38)
[2016-12-20] MEDS: INSULIN GLARGINE 100 UNIT/ML SUBCUT SCH (21:19)
[2016-12-21 05:38] LABS: Calcium 8.1 MG/DL (8.5-10.1); Osmolality,Calculated 290.8 MOS/KG (273-304); Potassium 3.7 MMOL/L (3.5-5.1)
[2016-12-21] MEDS: INSULIN LISPRO 100 UNIT/ML SUBCUT SCH ×4 (07:32→20:36)
--- NOTE | 2016-12-21 07:53 | Sleep Medicine Progress Note ---
Assessment and Plan (1) Unspecified sleep apnea Status: Acute Assessment and plan: We will continue with auto titration BiPAP tonight and we need to relook at her mask fit to make sure that it is good is we can do. She will require an lab titration and evaluation after discharge. Current Visit: Yes Sleep Medicine Subjective Interval history: Patient appears better this morning. She looks more alert. She did sleep with auto titration BiPAP last night and spent over 6 hours on treatment. She did not seem to be too pleased with her results. Her overall AHI on BiPAP therapy was 29.8 though this is improved from her baseline without intervention. It is not surprising that she was poorly controlled and that she has primarily central sleep apnea most likely. This is very difficult to treat and really needs to be evaluated and to be effectively treated, titrated in the sleep lab. Her average device pressures were about 13/9 last night. She did have some significant leak and her mask fit and we need to address this and make sure that the mask is appropriately fitted. Exam (Progress Note) - Constitutional Vitals: Period Temp Pulse Resp BP Sys/Marte Pulse Ox Last 24 Hr 97.6 F-98.3 F 54-72 13-23 119-166/48-77 94-99 Exam: She is more alert today. Chest with good air movement no focal wheeze rhonchi. Cardiac exam reveals regular rhythm without murmur or gallop. Abdomen soft nontender. Extremities are without clubbing, cyanosis, or edema. Neurologically, she is more alert. Results - Labs CBC & BMP: 12/19/16 16:58 12/21/16 04:24 Lab Results: I have reviewed the past 24 hour labs
[2016-12-21] MEDS: ISOSORBIDE MONONITRATE 30 MG TABLET PO SCH ×2 (09:42→20:33)
[2016-12-21] MEDS: CARVEDILOL 3.125 MG TABLET PO SCH ×2 (09:42→20:36)
[2016-12-21] MEDS: PANTOPRAZOLE 40 MG TABLET PO SCH (09:42)
[2016-12-21] MEDS: CLOPIDOGREL 75 MG TABLET PO SCH (09:42)
[2016-12-21] MEDS: ENOXAPARIN 30 MG/0.3 ML SYRINGE SUBCUT SCH (09:43)
--- NOTE | 2016-12-21 09:53 | Hospitalist Progress Note ---
Assessment and Plan (1) Acute ischemic stroke Status: Acute Assessment and plan: Neurology consult reviewed. MRI with Acute ischemia involving the frank and right thalamus. No parenchymal hemorrhage. Periventricular white matter. Continue Plavix Start Lipitor Control blood pressure PT OT consult Further recommendations depend on her response to therapy Achieve good glucose control Hemoglobin A1c: 8.0 Current Visit: Yes (2) Dyslipidemia Status: Acute Assessment and plan: Continue statin therapy Current Visit: Yes (3) Acute on chronic renal failure Status: Acute Current Visit: Yes Qualifiers: Chronic kidney disease stage: stage 4 (severe) (4) Diastolic CHF Status: Acute Current Visit: Yes Qualifiers: Congestive heart failure chronicity: acute on chronic Qualified Code(s): I50.33 - Acute on chronic diastolic (congestive) heart failure (5) DM2 (diabetes mellitus, type 2) Status: Chronic Current Visit: Yes Qualifiers: Diabetes mellitus complication status: with kidney complications Diabetes mellitus complication detail: with chronic kidney disease Diabetes mellitus [facility] insulin use: without exterminator helper termite use Chronic kidney disease stage: stage 3 (moderate) Qualified Code(s): E11.22 - Type 2 diabetes mellitus with diabetic chronic kidney disease; N18.3 - Chronic kidney disease, stage 3 ( moderate) (6) UTI (urinary tract infection) Status: Acute Assessment and plan: Gram-negative rods noted in urine. On Rocephin. Follow-up final cultures. Current Visit: Yes Qualifiers: Urinary tract infection type: acute cystitis Hospitalist: Subjective Interval history: Patient seen and examined. No acute events overnight. Case discussed with nursing staff. Labs reviewed. MRI shows Acute ischemia involving the frank and right thalamus. No parenchymal hemorrhage. Periventricular white matter. Blood pressure improved. Left upper and lower extremity neurological deficits persist. Exam - Constitutional Vitals: Period Temp Pulse Resp BP Sys/Marte Pulse Ox Last 24 Hr 97.6 F-98.3 F 54-72 13-23 119-166/48-77 94-99 Exam: Constitutional System: No distress. No tremulousness. Head: Normocephalic, atraumatic. Ears, Nose and Throat System: No pain or tenderness. No epistaxis or discharge Eyes System: Pupils equal, round, and reactive. Extraocular muscles intact. Neck: Supple, without adenopathy, No jugular venous distention. No thyromegaly, neck mass, or prior surgery apparent. Respiratory System: Chest clear to auscultation. Cardiovascular System: Heart with regular rate and rhythm. No murmur. GI System: Abdomen soft, nontender. Normo active bowel sounds present. Musculoskeletal System: limbs with no pedal edema. Full distal pulses. Normal capillary refill. Neurological System: Left upper and lower extremity weakness and paralysis. Speech is slurred. Patient is awake and alert. - Expanded ENT Exam Mouth exam: Present: dry mucosa Teeth exam: Present: other (missing teeth) Throat exam: Absent: post pharyngeal edema, post pharyngeal erythema Results - Labs CBC & BMP: 12/19/16 16:58 12/21/16 04:24 Lab Results: I have reviewed the past 24 hour labs - Diagnostic Findings Procedure: MRI: report reviewed by me, image reviewed by me
--- NOTE | 2016-12-21 09:54 | Cardiology Progress Note ---
I, Florinda Calero RN, am scribing for, and in the presence of, Ziggy Jett MD 09:51. Assessment and Plan (1) Acute ischemic stroke Status: Acute Assessment and plan: The patient had an acute ischemic stroke. She has been started on appropriate medical therapy. Rehabilitation will be starting. I will defer management to the admitting team and neurology. Current Visit: Yes (2) Acute on chronic renal failure Status: Acute Current Visit: Yes Qualifiers: Chronic kidney disease stage: stage 4 (severe) (3) Elevated troponin Status: Acute Assessment and plan: Troponins have been trivially elevated and flat. She has not had any symptoms consistent with angina. I do not think this is any sort of acute coronary syndrome. This may be related to her poorly controlled hypertension and chronic renal insufficiency. It is possible for there to be a slight bump in cardiac troponin associated with stroke as well. I do not think any additional cardiac workup or treatment for this is required right now. I am going to drop off of her case at this time. Please call if I can be of further assistance. Current Visit: Yes (4) Hypokalemia Status: Acute Assessment and plan: Potassium today is 3.7. Current Visit: Yes (5) Dyspnea Status: Acute Assessment and plan: The patient had significant dyspnea and orthopnea yesterday. Her echocardiogram showed normal left ventricular systolic function and no significant valvular disease. With her hypertension, it is possible she could have a degree of diastolic heart failure. Current Visit: Yes (6) Falls frequently Status: Acute Assessment and plan: Yesterday the patient reported that her "knees give out". In light of her new stroke, I wonder if this has been a source/contribute for her recent falls. Current Visit: Yes (7) Knee pain Status: Acute Assessment and plan: Orthopedics is seeing the patient for this. Current Visit: Yes (8) Orthopnea Status: Acute Current Visit: Yes (9) Poorly-controlled hypertension Status: Acute Assessment and plan: Adjustments were made in her medications, her blood pressure has improved today. Current Visit: Yes (10) Shoulder pain, left Status: Acute Current Visit: Yes Cardiology - PN: Subj Interval history: Diesel Inspector: Dr. Mckeon in the remote past PCP: [facility] Summary: Ms. Barnard is a 76 year old female who is a poor historian and it is difficult to understand her speech. Dr. Mckeon saw her in the hospital in 2011 for chest tightness. At that time she had no high-risk evidence of cardiac disease and he recommended she follow with outpatient stress testing at his office. I cannot find any record of this being done, and she states she does not think she had this. She had an echocardiogram done May 07, 2016 with ejection fraction at 50-55%. She complains of pain in her left shoulder started after a fall. She is not having any sort of anginal symptoms. She also reports that she was short of breath prior to admission, mostly when lying down. She states she fell because her knees gave way on her. She denies any palpitations or syncope. Her troponins have been approximately 0.06 and stable. It should also be noted that her creatinine has been elevated at 1.90. Her potassium was 3.2 on admission, she was given p.o. potassium in the emergency department. She was given IV Lasix in the emergency department and has been started on Lasix 40 mg IV twice daily. Her blood pressures have been elevated and she has been started on hydralazine 50 mg p.o. 3 times daily. Venous Doppler was negative for DVT in bilateral lower extremities. Left shoulder x-ray was without any acute changes. Chest x-ray showed cardiomegaly with component of CHF and slight pulmonary edema right greater than on the left. December 20, 2016: Ms. Barnard was transferred to the intensive care unit last night for a stroke alert was called. She reportedly cannot feel her left arm and had no use of it. CT of the head done last night was with no acute findings. She is scheduled for an MRI of the brain today and neurology has been consulted. This morning I cannot get her to speak, she will nod or shake her head. She indicates she is not having any chest pain or shortness of breath. She is unable to squeeze my hand with her left hand or move her left arm. media monitor currently shows sinus bradycardia with heart rates in the 50s. O2 sat 96% on room air. Her creatinine has elevated to 2.2, her Lasix has been placed on hold and she is currently receiving IV fluid bolus. Echocardiogram with ejection fraction 55-60%. December 21, 2016: Ms. Barnard is awake and alert this morning. This morning she will answer questions. She denies any cardiac symptoms today, but she does complain of pain in her left shoulder and arm. She is unable to move either of her left extremities. Her blood pressure continues to be improved throughout the night. O2 sat currently 96% on room air. media monitor currently shows sinus bradycardia with heart rate of 59. MRI of the brain indicated acute ischemia involving the frank and right thalamus with no new parenchymal hemorrhage. Her creatinine is unchanged at 2.2. Her telemetry strips have not demonstrated any sort of arrhythmia. Her echocardiogram showed preserved left ventricular function. I do not see any evidence of a high risk of cardio thromboembolic disease. Her blood pressure is under much better control. Current Medications Acetaminophen (Tylenol Tab) 325 mg PO Q4H PRN PRN Reason: fever, headache/body aches Atorvastatin Calcium (Lipitor) 40 mg PO BEDTIME [facility] Last Admin: 12/20/16 20:38 Dose: 40 mg Bisacodyl (Dulcolax Tab) 10 mg PO DAILY PRN PRN Reason: Constipation Carvedilol (Coreg) 3.125 mg PO BID [facility] Last Admin: 12/20/16 20:38 Dose: 3.125 mg Clopidogrel Bisulfate (Plavix) 75 mg PO DAILY [facility] Last Admin: 12/20/16 09:46 Dose: 75 mg Dextrose/Water (D50) 25 gm IV PRN PRN PRN Reason: Hypoglycemia with IV access Enoxaparin Sodium (Lovenox) 30 mg SUBCUT Q24H [facility] Last Admin: 12/19/16 21:50 Dose: 30 mg Glucagon () 1 mg IM PRN PRN PRN Reason: Hypoglycemia w/o IV access Magnesium Sulfate 2 gm/ Premix 50 mls @ 25 mls/hr IV .PER PROTOCOL PRN; Protocol PRN Reason: Per Protocol Magnesium Sulfate 4 gm/ Premix 100 mls @ 25 mls/hr IV .PER PROTOCOL PRN; Protocol PRN Reason: Per Protocol Ceftriaxone Sodium 1,000 mg/ (Sodium Chloride) 50 mls @ 200 mls/hr IV Q24H [facility] Last Admin: 12/20/16 12:59 Dose: 200 mls/hr Insulin Glargine (Lantus) 15 unit SUBCUT BEDTIME [facility] Last Admin: 12/20/16 21:19 Dose: Not Given Insulin Human Lispro (Humalog) 0 unit SUBCUT ACHS [facility] PRN Reason: Protocol Last Admin: 12/20/16 20:36 Dose: 3 unit Isosorbide Mononitrate (Imdur) 10 mg PO BID [facility] Last Admin: 12/20/16 20:37 Dose: 10 mg Morphine Sulfate () 1 mg IV Q3H PRN PRN Reason: Pain Severe (8-10) Last Admin: 12/19/16 22:00 Dose: 1 mg Nifedipine (Procardia Xl) 30 mg PO BEDTIME [facility] Last Admin: 12/20/16 20:37 Dose: 30 mg Ondansetron HCl (Zofran Inj) 4 mg IV Q4H PRN PRN Reason: Nausea Pantoprazole Sodium (Protonix Tab) 40 mg PO DAILY [facility] Last Admin: 12/20/16 09:46 Dose: 40 mg Petrolatum (Aquaphor) 1 applic TOP PRN PRN PRN Reason: Dry Skin Exam (Progress Note) - Constitutional Vitals: Period Temp Pulse Resp BP Sys/Marte Pulse Ox Last 24 Hr 97.6 F-98.3 F 54-72 13-23 119-166/48-77 94-99 General appearance: no acute distress, over weight - Head Head exam: Absent: abrasion, hematoma - Eye Eye exam: Absent: periorbital swelling, laceration to eyelids - Respiratory Respiratory exam: Present: clear to auscultation bilaterally. Absent: accessory muscle use, chest wall tenderness - Cardiovascular Cardiovascular exam: Present: bradycardia, regular rate and rhythm - GI/Abdominal GI/Abdominal exam: Present: normal bowel sounds, soft. Absent: distended, tenderness - Extremities Exam Extremities exam: Present: edema, other (Is unable to move either of her left extremities) - Neurological Exam Neurological exam: Present: alert, oriented X3, other (Unable to move left side) - Skin Skin exam: Present: warm, dry Result/EKG - Labs CBC & BMP: 12/19/16 16:58 12/21/16 04:24 Lab Results: I have reviewed the past 24 hour labs Labs: Laboratory Results - last 24 hr 12/20/16 12/20/16 12/20/16 08:40 12:38 17:33 Sodium Potassium Chloride Carbon Dioxide Anion Gap BUN Creatinine GFR Calculation BUN/Creatinine Ratio Glucose POC Glucose 97 132 H 144 H Hemoglobin A1c Calculated Osmolality Calcium 12/20/16 12/21/16 12/21/16 20:28 04:24 04:24 Sodium 144 Potassium 3.7 Chloride 112 H Carbon Dioxide 26 Anion Gap 9.7 BUN 27 H Creatinine 2.20 H GFR Calculation 23 BUN/Creatinine Ratio 12.00 Glucose 104 POC Glucose 154 H Hemoglobin A1c 8.0 H Calculated Osmolality 290.8 Calcium 8.1 L 12/21/16 07:32 Sodium Potassium Chloride Carbon Dioxide Anion Gap BUN Creatinine GFR Calculation BUN/Creatinine Ratio Glucose POC Glucose 113 H Hemoglobin A1c Calculated Osmolality Calcium - EKG EKG results: interpreted by me EKG shows: bradycardia, sinus rhythm I, Ziggy Jett MD, personally performed the services described in this documentation, ascribed by Florinda Calero RN in my presence, and it is both accurate and complete [id number] .
[2016-12-21] MEDS: ACETAMINOPHEN 325 MG TABLET PO PRN (11:38)
--- NOTE | 2016-12-21 12:03 | Neurology Progress Note ---
Neurology - PN : Subjective Interval history: Patient seems to be doing okay. Complaining of left upper extremity pain. Continued to have dense left hemiplegia. Echocardiogram reveals ejection fraction of 55-60% Exam (Progress Note) - Constitutional Vitals: Period Temp Pulse Resp BP Sys/Marte Pulse Ox Last 24 Hr 97.6 F-100.1 F 54-72 13-23 119-190/48-77 94-99 Exam: GENERAL: Patient is in no acute distress. NECK: Neck is supple. There is no JVD. No carotid bruits present. No thyroid masses. CVS: First and second heart sounds are normal. There is no S3 present. Regular rate and rhythm. RESPIRATORY: Lungs are clear to auscultation without any rales or rhonchi. ABDOMEN: Soft and non-tender. Bowel sounds are present. There is no hepatosplenomegaly. EXT: There is no palpable edema. Peripheral pulses are present. Skin: No rashes Central Nervous system: General: Alert, awake and Oriented x 3 Speech: Fluent Comprehension: Intact and normal Facial expressions: Normal Cranial Nerves: CN1/Olfactory: Normal CN II/ Optic: Normal, Visual Glez unreliable CN III, and : [place] & EOMI CN V: Normal & intact CN VII: Left central facial weakness CNVIII: Normal CN XI/X/XI/XII: Intact and Normal Motor: Bulk and Tone is normal. Strength in the right 5/5 Strength in the left 1-2/5 Sensory: Decreased for all the modalities of PP, LT and temp sense Reflexes: 1+ and symmetrical Cerebellar function: Normal finger to nose and heel to petersen testing in the right and could not assess in the left. Toes: Positive Babinski in the left Gait: Cannot be tested Assessment: Acute CVA Risk factors: Diabetes, CHF, hyperlipidemia, hypertension and advanced age Plan: Continue Plavix and Lovenox for now Continue PT OT and ST Consider swing bed placed Results - Labs CBC & BMP: 12/19/16 16:58 12/21/16 04:24
[2016-12-21] MEDS ORDERED: TUBERCULIN SKIN TEST 0.1 ML SYRINGE INTRADERM ONE (16:00)
--- NOTE | 2016-12-21 16:04 | Case Mgmt Physician Query Form ---
TB Signs and Symptoms Screening ([place]) INSTRUCTIONS: To be completed annually on residents/staff with a significant Tuberculin Skin Test (TST) upon admission/hire or a prior significant TST. To be completed on all staff at hire. Please respond to each listed symptom with an (X) in either the "YES" or "NO" box. Do you currently have any of the following symptoms: YES NO ( ) ( x) A cough If yes, is it: ( ) Productive ( ) Non- productive ( ) ( x) Hemoptysis (spitting up blood) ( ) ( x) Chest pains ( ) ( x) Weight Loss ( ) ( x) Fever ( ) ( x) Night Sweats ( ) ( x) Weakness ( ) ( x) Loss of Appetite ( ) ( x) Difficulty Breathing If you answered YES" to any of the above questions, how long have symptoms been present? Comments: If you have any questions, please contact me. Thank you, Maura Gaxiola RN, [facility] Case Management Department Office Voice Mail: [phone] [email or web address]
[2016-12-21] MEDS: ATORVASTATIN 40 MG TABLET PO SCH (20:36)
[2016-12-21] MEDS: INSULIN GLARGINE 100 UNIT/ML SUBCUT SCH (20:36)
[2016-12-22 05:19] LABS: Basophils # 0.1 10*3/uL (0.0-0.2); Basophils % 0.5 % (0.0-0.8); Eosinophils # 0.8 10*3/uL (0.0-0.87); Eosinophils % 8.8 % (0.00-10.9); Hematocrit 31.3 VOL% (35.7-47.0); Hemoglobin 10.2 GM/DL (12.0-16.0); Immature Granulocytes % 0.5 %; Immature Granulocytes Absolute 0.05 #; Lymphocytes # 1.8 10*3/uL (1.4-4.0); Lymphocytes % 19.5 % (21.3-54.2); Mean Corpuscular HGB Conc 32.6 GM/DL (32-36); Mean Corpuscular Hemoglobin 29 PG (27-34); Mean Corpuscular Volume 90.2 FL (87-102); Mean Platelet Volume 11.1 FL (9.6-12.0); Monocytes # 0.6 10*3/uL (0.11-0.8); Monocytes % 6.4 % (1.7-12.7); Neutrophils # 5.9 10*3/uL (1.4-7.4); Neutrophils % 64.3 % (38.7-73.9); Platelet Count 220 T/CUMM (130-400); Red Blood Count 3.47 MC/CUMM (3.8-5.5); White Blood Count 9.1 T/CUMM (4-12)
[2016-12-22 05:48] LABS: Magnesium 2.1 MG/DL (1.8-2.4); Osmolality,Calculated 297.7 MOS/KG (273-304); Potassium 3.9 MMOL/L (3.5-5.1)
[2016-12-22] MEDS: INSULIN LISPRO 100 UNIT/ML SUBCUT SCH ×4 (08:36→21:20)
[2016-12-22] MEDS: ENOXAPARIN 30 MG/0.3 ML SYRINGE SUBCUT SCH (08:36)
[2016-12-22] MEDS: CLOPIDOGREL 75 MG TABLET PO SCH (08:37)
[2016-12-22] MEDS: ISOSORBIDE MONONITRATE 30 MG TABLET PO SCH ×2 (08:37→21:19)
[2016-12-22] MEDS: CARVEDILOL 3.125 MG TABLET PO SCH ×2 (08:39→21:20)
--- NOTE | 2016-12-22 10:18 | Hospitalist Progress Note ---
Hospitalist: Subjective Interval history: Overnight, there were no significant events. Patient has no complaints. Exam - Constitutional Vitals: Period Temp Pulse Resp BP Sys/Marte Pulse Ox Last 24 Hr 97.1 F-100.3 F 53-67 14-20 129-172/54-78 91-96 General appearance: no acute distress, morbidly obese - Head Head exam: Present: normal inspection, normocephalic - Eye Eye exam: Present: EOMI Pupils: Present: [place] - Expanded ENT Exam Mouth exam: Present: dry mucosa Teeth exam: Present: other (missing teeth) Throat exam: Absent: post pharyngeal edema, post pharyngeal erythema - Respiratory Respiratory exam: Present: clear to auscultation bilaterally. Absent: rales, rhonchi, wheezes - Cardiovascular Cardiovascular exam: Present: regular rate and rhythm - GI/Abdominal GI/Abdominal exam: Present: normal bowel sounds, soft. Absent: tenderness - Extremities Exam Extremities exam: Absent: edema - Neurological Exam Neurological exam: Present: other (left sided paralysis) Results - Labs CBC & BMP: 12/22/16 05:01 12/22/16 05:01 - Impressions 1. Acute ischemic stroke: MRI showed involvement in frank and right thalamus; being followed by neurology; on plavix and statin; control bp; PT/OT; echo: with EF of 55-60%. 2. Dyslipidemia: on statin; most recent LDL of 80 (12/19/16) 3. Acute on CKD: worsening; will give gentle fluids 4. Diastolic CHF: does not look volume overloaded; control blood pressure 5. DM, hba1c of 8.0; continue insulin therapy 6. Citrobacter UTI: sensitive to ceftin; will switch to renally dosed ceftin. 7. Elevated TNI: being followed by cardiology; no ACS 8. Unspecified sleep apnea: tolerating BIPAP 9. Disposition: rehab Plan: as noted above + continue current therapy
[2016-12-22] MEDS ORDERED: CIPROFLOXACIN 500 MG TABLET PO SCH (11:00)
[2016-12-22] MEDS ORDERED: SODIUM CHLORIDE 0.9% 1,000 ML IV SCH (11:00)
[2016-12-22] MEDS: PANTOPRAZOLE 40 MG TABLET PO SCH (12:38)
[2016-12-22] MEDS: ATORVASTATIN 40 MG TABLET PO SCH (21:20)
[2016-12-22] MEDS: INSULIN GLARGINE 100 UNIT/ML SUBCUT SCH (21:20)
[2016-12-23 06:46] LABS: Basophils # 0.1 10*3/uL (0.0-0.2); Basophils % 0.9 % (0.0-0.8); Eosinophils % 11.7 % (0.00-10.9); Immature Granulocytes % 0.5 %; Immature Granulocytes Absolute 0.04 #; Lymphocytes # 1.7 10*3/uL (1.4-4.0); Lymphocytes % 20.3 % (21.3-54.2); Mean Corpuscular HGB Conc 32.3 GM/DL (32-36); Mean Corpuscular Hemoglobin 29 PG (27-34); Mean Corpuscular Volume 90.9 FL (87-102); Mean Platelet Volume 11.2 FL (9.6-12.0); Monocytes # 0.6 10*3/uL (0.11-0.8); Monocytes % 6.8 % (1.7-12.7); Neutrophils # 4.9 10*3/uL (1.4-7.4); Neutrophils % 59.8 % (38.7-73.9); Platelet Count 232 T/CUMM (130-400); Red Blood Count 3.41 MC/CUMM (3.8-5.5); Red Cell Distribution Width 14.6 % (9.3-17.3); White Blood Count 8.1 T/CUMM (4-12)
[2016-12-23] MEDS: INSULIN LISPRO 100 UNIT/ML SUBCUT SCH ×4 (07:16→21:47)
[2016-12-23 07:19] LABS: Magnesium 2.3 MG/DL (1.8-2.4); Osmolality,Calculated 299.4 MOS/KG (273-304)
[2016-12-23 07:44] LABS: Eosinophils 6 % (0-10); Hypochromasia 1+; Lymphocytes 16 % (20-55); Platelet Estimate Adequate; Segmented Neutrophils 72 % (50-85); Total Cells Counted 100
[2016-12-23] MEDS: CARVEDILOL 3.125 MG TABLET PO SCH ×2 (10:27→21:08)
[2016-12-23] MEDS: ENOXAPARIN 30 MG/0.3 ML SYRINGE SUBCUT SCH (10:27)
[2016-12-23] MEDS: PANTOPRAZOLE 40 MG TABLET PO SCH (10:27)
[2016-12-23] MEDS: CEFUROXIME 250 MG TABLET PO SCH (10:27)
[2016-12-23] MEDS: ISOSORBIDE MONONITRATE 30 MG TABLET PO SCH ×2 (10:27→21:08)
[2016-12-23] MEDS: CLOPIDOGREL 75 MG TABLET PO SCH (10:30)
--- NOTE | 2016-12-23 12:42 | Neurology Progress Note ---
Neurology - PN : Subjective Interval history: Patient seems to be doing better. More alert and awake. His speech is fluent. Swallowing okay. Dense left hemiplegia. Exam (Progress Note) - Constitutional Vitals: Period Temp Pulse Resp BP Sys/Marte Pulse Ox Last 24 Hr 98.1 F-99.0 F 52-57 18-20 123-155/53-79 92-97 Exam: GENERAL: Patient is in no acute distress. NECK: Neck is supple. There is no JVD. No carotid bruits present. No thyroid masses. CVS: First and second heart sounds are normal. There is no S3 present. Regular rate and rhythm. RESPIRATORY: Lungs are clear to auscultation without any rales or rhonchi. ABDOMEN: Soft and non-tender. Bowel sounds are present. There is no hepatosplenomegaly. EXT: There is no palpable edema. Peripheral pulses are present. Skin: No rashes Central Nervous system: General: Alert, awake and Oriented x 3 Speech: Fluent Comprehension: Intact and normal Facial expressions: Normal Cranial Nerves: CN1/Olfactory: Normal CN II/ Optic: Normal, Visual Glez unreliable CN III, and : [place] & EOMI CN V: Normal & intact CN VII: Left central facial weakness CNVIII: Normal CN XI/X/XI/XII: Intact and Normal Motor: Bulk and Tone is normal. Strength in the right 5/5 Strength in the left 1-2/5 Sensory: Decreased for all the modalities of PP, LT and temp sense Reflexes: 1+ and symmetrical Cerebellar function: Normal finger to nose and heel to petersen testing in the right and could not assess in the left. Toes: Positive Babinski in the left Gait: Cannot be tested Assessment: Acute CVA Risk factors: Diabetes, CHF, hyperlipidemia, hypertension and advanced age Plan: Continue Plavix and Lovenox for now Continue PT OT and ST For swing bed placement Results - Labs CBC & BMP: 12/23/16 05:50 12/23/16 05:50
--- NOTE | 2016-12-23 13:34 | Hospitalist Progress Note ---
Assessment and Plan (1) Acute ischemic stroke Status: Acute Assessment and plan: Going through physical therapy and will continue physical therapy at home. Disposition is been planned for physical rehab Current Visit: Yes (2) Acute kidney injury superimposed on CKD Status: Acute Assessment and plan: Continue to observe fluid status and renal function as we rehydrate the patient while she is still here. Just that she lives here with a creatinine that would be higher than before. Current Visit: Yes (3) Diabetes mellitus type 2 in obese Status: Acute Assessment and plan: Put patient on sliding scale insulin and basal insulin. Maintain blood sugars above 120 below 150. In the face of the new stroke patient is to have sugar that a little bit on the higher side. But not to exceed 150 all the time Current Visit: Yes (4) Dyslipidemia Status: Acute Assessment and plan: Patient is on a statin form of atorvastatin 40 mg at bedtime. Current Visit: Yes Hospitalist: Subjective Interval history: Patient has been seen interviewed and examined and chart has been reviewed this admission patient has had a stroke. Currently on starting, antiplatelet therapy and being planned for rehab. I am assuming care of this patient today. Exam - Constitutional Vitals: Period Temp Pulse Resp BP Sys/Marte Pulse Ox Last 24 Hr 98.1 F-99.0 F 52-57 18-20 123-155/53-79 92-97 General appearance: morbidly obese - Head Head exam: Present: normocephalic, other (Patient with a central left paresis of the first) - Eye Eye exam: Present: EOMI Pupils: Present: [place] - ENT ENT exam: Present: normal exam - Expanded ENT Exam Mouth exam: Present: dry mucosa Teeth exam: Present: other (missing teeth) Throat exam: Absent: post pharyngeal edema, post pharyngeal erythema - Neck Neck exam: Present: normal inspection - Respiratory Respiratory exam: Present: clear to auscultation bilaterally - Cardiovascular Cardiovascular exam: Present: regular rate and rhythm - GI/Abdominal GI/Abdominal exam: Present: normal bowel sounds, soft - Extremities Exam Extremities exam: Present: other (Left-sided paresis will move toes some but difficult to move the upper extremity) - Neurological Exam Neurological exam: Present: alert, oriented X3, CN II-XII intact - Psychiatric Psychiatric exam: Present: other (Subdued affect) - Skin Skin exam: Present: normal color, warm, dry Results - Labs CBC & BMP: 12/23/16 05:50 12/23/16 05:50 Lab Results: I have reviewed the past 24 hour labs (Noted creatinine of 2.1 and BUN of 31 and demonstrates acute on chronic kidney injury hemoglobin A1c of 8% does have history of diabetes)
[2016-12-23] MEDS: ATORVASTATIN 40 MG TABLET PO SCH (21:08)
[2016-12-23] MEDS: INSULIN GLARGINE 100 UNIT/ML SUBCUT SCH (21:46)
[2016-12-24 07:28] LABS: Basophils # 0.1 10*3/uL (0.0-0.2); Basophils % 1.3 % (0.0-0.8); Eosinophils % 14.5 % (0.00-10.9); Hemoglobin 9.6 GM/DL (12.0-16.0); Immature Granulocytes % 0.4 %; Immature Granulocytes Absolute 0.03 #; Lymphocytes # 1.7 10*3/uL (1.4-4.0); Lymphocytes % 23.2 % (21.3-54.2); Mean Corpuscular Hemoglobin 29 PG (27-34); Mean Corpuscular Volume 90.4 FL (87-102); Mean Platelet Volume 11.2 FL (9.6-12.0); Monocytes # 0.4 10*3/uL (0.11-0.8); Monocytes % 6.2 % (1.7-12.7); Neutrophils # 3.9 10*3/uL (1.4-7.4); Neutrophils % 54.4 % (38.7-73.9); Platelet Count 226 T/CUMM (130-400); Red Blood Count 3.32 MC/CUMM (3.8-5.5); Red Cell Distribution Width 14.3 % (9.3-17.3); White Blood Count 7.1 T/CUMM (4-12)
[2016-12-24] MEDS: INSULIN LISPRO 100 UNIT/ML SUBCUT SCH ×4 (07:30→20:39)
[2016-12-24 07:53] LABS: Magnesium 2.3 MG/DL (1.8-2.4); Osmolality,Calculated 294.6 MOS/KG (273-304); Potassium 4.1 MMOL/L (3.5-5.1)
[2016-12-24 08:10] LABS: Band Neutrophils 1 % (0-10); Eosinophils 13 % (0-10); Hypochromasia 1+; Lymphocytes 23 % (20-55); Microcytosis Slight; Ovalocytes Slight; Platelet Estimate Normal; Segmented Neutrophils 59 % (50-85); Total Cells Counted 100
--- NOTE | 2016-12-24 08:44 | Neurology Progress Note ---
Neurology - PN : Subjective Interval history: Mr. Barnard continued to remain same in the left side. Still quite weak. Swallowing good. Alert and awake. Speech is fluent. Exam (Progress Note) - Constitutional Vitals: Period Temp Pulse Resp BP Sys/Marte Pulse Ox Last 24 Hr 97.2 F-98.6 F 45-54 16-20 129-159/68-81 92-99 Exam: GENERAL: Patient is in no acute distress. NECK: Neck is supple. There is no JVD. No carotid bruits present. No thyroid masses. CVS: First and second heart sounds are normal. There is no S3 present. Regular rate and rhythm. RESPIRATORY: Lungs are clear to auscultation without any rales or rhonchi. ABDOMEN: Soft and non-tender. Bowel sounds are present. There is no hepatosplenomegaly. EXT: There is no palpable edema. Peripheral pulses are present. Skin: No rashes Central Nervous system: General: Alert, awake and Oriented x 3 Speech: Fluent Comprehension: Intact and normal Facial expressions: Normal Cranial Nerves: CN1/Olfactory: Normal CN II/ Optic: Normal, Visual Lgez unreliable CN III, and : [place] & EOMI CN V: Normal & intact CN VII: Left central facial weakness CNVIII: Normal CN XI/X/XI/XII: Intact and Normal Motor: Bulk and Tone is normal. Strength in the right 5/5 Strength in the left 1-2/5 Sensory: Decreased for all the modalities of PP, LT and temp sense Reflexes: 1+ and symmetrical Cerebellar function: Normal finger to nose and heel to petersen testing in the right and could not assess in the left. Toes: Positive Babinski in the left Gait: Cannot be tested Assessment: Acute CVA Risk factors: Diabetes, CHF, hyperlipidemia, hypertension and advanced age Plan: Continue Plavix and Lovenox for now Continue PT OT and ST Consult TMR to see if she qualifies. Sign off please call as needed Results - Labs CBC & BMP: 12/24/16 05:44 12/24/16 05:44 Specialty Discharge - Follow Up or Referrals Follow up with: Fabien Quarles MD [Physician] - 1 Month
[2016-12-24] MEDS: ISOSORBIDE MONONITRATE 30 MG TABLET PO SCH ×2 (10:20→20:39)
[2016-12-24] MEDS: CEFUROXIME 250 MG TABLET PO SCH (10:20)
[2016-12-24] MEDS: PANTOPRAZOLE 40 MG TABLET PO SCH (10:20)
[2016-12-24] MEDS: CLOPIDOGREL 75 MG TABLET PO SCH (10:20)
[2016-12-24] MEDS: ENOXAPARIN 30 MG/0.3 ML SYRINGE SUBCUT SCH (10:23)
[2016-12-24] MEDS: CARVEDILOL 3.125 MG TABLET PO SCH ×2 (10:23→20:39)
--- NOTE | 2016-12-24 11:08 | Hospitalist Progress Note ---
Assessment and Plan (1) Acute ischemic stroke Status: Acute Assessment and plan: Going through physical therapy and will continue physical therapy at home. Disposition is been planned for physical rehab; this will be at a swing bed at [facility] if she is accepted Current Visit: Yes (2) Acute kidney injury superimposed on CKD Status: Acute Assessment and plan: Continue to observe fluid status and renal function as we rehydrate the patient while she is still here. Just that she lives here with a creatinine that would be higher than before. Current Visit: Yes (3) Diabetes mellitus type 2 in obese Status: Acute Assessment and plan: Put patient on sliding scale insulin and basal insulin. Maintain blood sugars above 120 below 150. In the face of the new stroke patient is to have sugar that a little bit on the higher side. But not to exceed 150 all the time Current Visit: Yes (4) Dyslipidemia Status: Acute Assessment and plan: Patient is on a statin form of atorvastatin 40 mg at bedtime. Current Visit: Yes Hospitalist: Subjective Interval history: Patient has been seen interviewed and examined and chart has been reviewed. She remains to have a dense paresis of the left side. Cannot move the arm can remove the leg she is able to express herself and receptionist is good. She was admitted to the hospital with what was placement described as decompensated CHF very well. She developed a stroke. That was been working with her; plan is to get her to the rehab unit at the swing bed at [facility]. Has been no decisions made as of now. Patient is a full code. Exam - Constitutional Vitals: Period Temp Pulse Resp BP Sys/Marte Pulse Ox Last 24 Hr 97.2 F-98.1 F 45-53 16-20 129-166/70-81 92-99 General appearance: no acute distress, morbidly obese - Head Head exam: Present: other (Central left-sided facial droop she is able to phonate well) - Eye Eye exam: Present: EOMI Pupils: Present: [place] - Expanded ENT Exam Mouth exam: Present: dry mucosa Teeth exam: Present: other (missing teeth) Throat exam: Absent: post pharyngeal edema, post pharyngeal erythema - Neck Neck exam: Present: normal inspection - Respiratory Respiratory exam: Present: clear to auscultation bilaterally - Cardiovascular Cardiovascular exam: Present: regular rate and rhythm - GI/Abdominal GI/Abdominal exam: Present: normal bowel sounds, soft - Extremities Exam Extremities exam: Present: other (Left sided paresis) - Neurological Exam Neurological exam: Present: alert, oriented X3, other (Left facial droop) - Psychiatric Psychiatric exam: Present: other (Subdued mood and affect) - Skin Skin exam: Present: normal color, warm, dry Results - Labs CBC & BMP: 12/24/16 05:44 12/24/16 05:44 Lab Results: I have reviewed the past 24 hour labs Specialty Discharge - Follow Up or Referrals Follow up with: Fabien Quarles MD [Physician] - 1 Month
--- NOTE | 2016-12-24 12:45 | Sleep Medicine Progress Note ---
Assessment and Plan (1) Unspecified sleep apnea Status: Acute Assessment and plan: We will continue present therapy and follow-up response. Current Visit: Yes Sleep Medicine Subjective Interval history: Patient appears to be recovering from her stroke. She still has a dense left hemiplegia. She states that she is sleeping with CPAP at night. She reports no new issues or problems. Exam (Progress Note) - Constitutional Vitals: Period Temp Pulse Resp BP Sys/Marte Pulse Ox Last 24 Hr 97.2 F-98.1 F 45-53 16-20 129-166/70-81 92-99 Exam: Patient alert and responsive and answers questions. HEENT otherwise unremarkable. Neck supple without adenopathy. Chest with good air movement and no focal wheeze rhonchi. Cardiac exam reveals regular rhythm without murmur gallop. Abdomen soft nontender extremities without increased edema. Neurologically, she is alert and responsive. She does have a dense left hemiplegia. Results - Labs CBC & BMP: 12/24/16 05:44 12/24/16 05:44 Lab Results: I have reviewed the past 24 hour labs Specialty Discharge - Follow Up or Referrals Follow up with: Fabien Quarles MD [Physician] - 1 Month
[2016-12-24] MEDS: INSULIN GLARGINE 100 UNIT/ML SUBCUT SCH (20:39)
[2016-12-24] MEDS: ATORVASTATIN 40 MG TABLET PO SCH (20:40)
[2016-12-25] MEDS: ACETAMINOPHEN 325 MG TABLET PO PRN (03:20)
[2016-12-25] MEDS: ISOSORBIDE MONONITRATE 30 MG TABLET PO SCH (08:21)
[2016-12-25] MEDS: CARVEDILOL 3.125 MG TABLET PO SCH (08:21)
[2016-12-25] MEDS: PANTOPRAZOLE 40 MG TABLET PO SCH (08:21)
[2016-12-25] MEDS: CEFUROXIME 250 MG TABLET PO SCH (08:21)
[2016-12-25] MEDS: ENOXAPARIN 30 MG/0.3 ML SYRINGE SUBCUT SCH (08:21)
[2016-12-25] MEDS: CLOPIDOGREL 75 MG TABLET PO SCH (08:21)
[2016-12-25] MEDS: INSULIN LISPRO 100 UNIT/ML SUBCUT SCH ×2 (08:21→11:08)
--- NOTE | 2016-12-25 08:50 | Hospitalist Progress Note ---
Hospitalist: Subjective Interval history: Patient spent an uneventful night. She has no new complaints. She continues to have a left-sided flaccid hemiplegia. She awaits placement in a swing bed. Exam - Constitutional Vitals: Period Temp Pulse Resp BP Sys/Marte Pulse Ox Last 24 Hr 97.6 F-98.6 F 47-58 14-20 133-149/66-77 93-98 General appearance: no acute distress - Head Head exam: Present: normal inspection - Expanded ENT Exam Mouth exam: Present: dry mucosa Teeth exam: Present: other (missing teeth) Throat exam: Absent: post pharyngeal edema, post pharyngeal erythema - Neck Neck exam: Present: normal inspection - Respiratory Respiratory exam: Present: clear to auscultation bilaterally - Cardiovascular Cardiovascular exam: Present: regular rate and rhythm - GI/Abdominal GI/Abdominal exam: Present: normal bowel sounds, soft, other (Nontender with no palpable masses or hepatosplenomegaly.) - Extremities Exam Extremities exam: Present: normal inspection - Neurological Exam Neurological exam: Present: other (Left hemiplegia.) - Skin Skin exam: Present: normal color, warm, intact Results - Labs CBC & BMP: 12/24/16 05:44 12/24/16 05:44 Specialty Discharge - Follow Up or Referrals Follow up with: Fabien Quarles MD [Physician] - 1 Month
--- NOTE | 2016-12-25 08:55 | Discharge Summary ---
Hospital Course - Hospital Course Hospital Course: Ms. Barnard is a 76 year old female [place] female presenting to the ED via EMS for further evaluation of generalized weakness that has been ongoing x3 days. Patient reports that she was walking when her legs suddenly gave way, resulting in her falling, landing onto the floor below her 2 days ago. She has since been having L shoulder pain. Patient en route to the ED was given 100 mcg Fentanyl per EMS for L shoulder pain. Patient states that last night she developed L sided chest pain and this morning became short of breath while lying in bed. Denies having any N/V or diaphoresis. Has had cough but no fevers. Patient reports a history of HTN and DM. Denies use of tobacco. Patient has no further complaints. Patient was admitted to the hospital. She was seen in consultation by orthopedics who found a contusion of the left shoulder and bilateral severe osteoarthritis of the knees. She was seen in consultation by cardiology. It was their impression that there is no evidence of acute myocardial infarction. In hospital she experienced the new onset of severe left-sided weakness progressing to the left hemiplegia. A CT scan of the head demonstrated evidence of a new acute thalamic stroke. She was seen in consultation by neurology who recommended conservative management. She received physical therapy during her hospitalization with no improvement of her left hemiplegia. She remains mentally intact. The time of her discharge she was stable. Diagnosis - Discharge Diagnosis (1) Insulin dependent diabetes mellitus Status: Chronic (2) Diastolic CHF Status: Chronic (3) Knee pain Status: Chronic (4) Shoulder pain, left Status: Acute (5) Unspecified sleep apnea Status: Chronic (6) Acute ischemic stroke Status: Acute Specialty Discharge - Follow Up or Referrals Follow up with: Fabien Quarles MD [Physician] - 1 Month Discharge Plan - Discharge Data Disposition: Swing Bed, [facility] Based, [facility] [place] Condition at Discharge: Stable Discharge Diet: advance to your usual diet Activity: as per physical therapy - Discharge Medications New Atorvastatin [Lipitor] 40 mg PO BEDTIME tablet Isosorbide Mononitrate [Imdur] 10 mg PO BID tablet NIFEdipine XL TAB [Procardia Xl] 30 mg PO BEDTIME tablet Clopidogrel [Plavix] 75 mg PO DAILY tablet Skin Healing Oint (Aquaphor) [Aquaphor] 1 applic TOP PRN PRN applic PRN Reason: Dry Skin Continue Lisinopril 20 mg PO DAILY Albuterol Inhaler [Proventil Inhaler] 1 puff INH Q4H PRN PRN Reason: Shortness Of Breath/Wheezing Pantoprazole Tab [Protonix Tab] 40 mg PO DAILY #30 tablet Insulin Aspart [NovoLOG FlexPen] 3 units SUBCUT TID W/MEALS Ranitidine Tab [Zantac Tab] 150 mg PO BID Furosemide 40 mg PO DAILY Carvedilol [Coreg] 6.25 mg PO BID Insulin Detemir [Levemir FlexPen] 15 units SUBCUT BEDTIME Discontinued Isosorbide Mononitrate 10 mg PO BID - Follow Up or Referral Follow Up: Fabien Quarles MD [Physician] - 1 Month - Forms/Instructions Exam - Constitutional Vitals: Period Temp Pulse Resp BP Sys/Marte Pulse Ox Last 24 Hr 97.6 F-98.6 F 47-58 14-20 133-149/66-77 93-98 Discharge Results Labs on day of discharge: Labs from last 24 hours 12/25/16 12/24/16 12/24/16 07:12 20:28 16:04 POC Glucose 94 220 H 148 H 12/24/16 11:25 POC Glucose 121 H DS: Provider Date of admission: 12/18/16 18:53 Primary care physician: Diana Smith MD Attending physician on admission: Ty Hicks MD Consults: 12/18/16 19:40 Consult to Sleep Center [CONS] Routine Reason for Sleep Center: Sleep Center Physician Consult Comment: sandra 12/18/16 21:48 Consult to Case Mgmt/Social Srvs [CONS] Routine Reason for Case Mgmt/Social Srvs: Rehab Discharge Planning Consult Comment: Requests rehab at [facility] Consult to Occupational Therapy [CONS] Routine Reason for Occupational Therapy: Evaluate and Treat Consult to Physician [CONS] Routine Comment: bilateral knee pain; hx of falling Consulting Provider: Ze Bailon Jr. Person Notified: GUILLERMINA Date Notified: 12/19/16 Time Notified: 08:54 Consult to Physician [CONS] Routine Comment: chf exacerbation, chest pain Consulting Provider: Ziggy Jett When should Consulting Provider be notified: In am Person Notified: CHARLY Date Notified: 12/19/16 Time Notified: 08:56 Consult to Wound Care - [place] [CONS] Routine Reason for Wound Care: Wound Care Management Consult Comment: bilateral feet/ankles PT [Consult to Physical Therapy] [CONS] Routine Reason for Physical Therapy: Evaluate and Treat 12/18/16 22:27 Consult to Dietitian [CONS] Routine Reason for Dietitian: Dietary Consult 12/19/16 16:36 Consult to Physician [CONS] Routine Comment: left arm flaccid, r/o stroke Consulting Provider: Fabien Quarles Person Notified: Karie Date Notified: 12/19/16 Time Notified: 16:51 12/24/16 08:44 Consult to Case Mgmt/Social Srvs [CONS] Routine Reason for Case Mgmt/Social Srvs: Rehab 12/25/16 08:36 Consult to Case Mgmt/Social Srvs [CONS] Routine Reason for Case Mgmt/Social Srvs: Swingbed/SNF/Fdc Consult Comment: Ready for discharge today Discharging clinician: Paul Staton
[2016-12-25 10:54] VITALS: BP 137/56
--- NOTE | 2016-12-25 18:07 | Order Completion Report ---
See report scanned to EMR
== END 2016-12-25 14:08 | DRG 291 ==
LOC: EDBD → EDUNIT# → N.ED 15:21 → SUATTDRO 18:53 → N.EDINP 18:53 → N.5E 21:15 → N.CC 12-19 17:52 → N.5E 12-21 15:33
PROVIDERS: ADMIT Internal Medicine

== ENCOUNTER 2017-11-17 11:55 | Inpatient (IN) ==
[2017-11-17] MEDS ORDERED: ACETAMINOPHEN 325 MG TABLET PO PRN (14:53)
[2017-11-17] MEDS ORDERED: ONDANSETRON 4 MG/2 ML VIAL IV PRN (14:53)
[2017-11-17] MEDS ORDERED: LABETALOL 100 MG/20 ML VIAL IV PRN (15:20)
[2017-11-17 15:34] LABS: Basophils # 0.1 10*3/uL (0.0-0.2); Basophils % 0.6 % (0.0-0.8); Eosinophils # 0.1 10*3/uL (0.0-0.87); Eosinophils % 0.8 % (0.00-10.9); Hematocrit 36.4 VOL% (35.7-47.0); Hemoglobin 11.7 GM/DL (12.0-16.0); Immature Granulocytes % 0.6 %; Immature Granulocytes Absolute 0.07 #; Lymphocytes # 1.5 10*3/uL (1.4-4.0); Lymphocytes % 13.6 % (21.3-54.2); Mean Corpuscular HGB Conc 32.1 GM/DL (32-36); Mean Corpuscular Hemoglobin 29 PG (27-34); Mean Corpuscular Volume 91.2 FL (87-102); Mean Platelet Volume 10.3 FL (9.6-12.0); Monocytes # 0.4 10*3/uL (0.11-0.8); Monocytes % 3.5 % (1.7-12.7); Neutrophils # 8.9 10*3/uL (1.4-7.4); Neutrophils % 80.9 % (38.7-73.9); Platelet Count 219 T/CUMM (130-400); Red Blood Count 3.99 MC/CUMM (3.8-5.5); Red Cell Distribution Width 13.9 % (9.3-17.3); White Blood Count 11.1 T/CUMM (4-12)
[2017-11-17] MEDS ORDERED: GLUCAGON 1 MG VIAL IM PRN (15:35)
[2017-11-17] MEDS ORDERED: DEXTROSE 50% 25 GM/50 ML VIAL IV PRN (15:35)
[2017-11-17 15:55] LABS: Bilirubin,Total 0.7 MG/DL (0.2-1.0); Calcium 9.1 MG/DL (8.5-10.1); Osmolality,Calculated 302.6 MOS/KG (273-304); Potassium 4.3 MMOL/L (3.5-5.1); Total Protein 7.3 G/DL (6.4-8.3)
[2017-11-17 16:50] LABS: Apearance,Urine Slightly Hazy (Clear); Bacteria,Urine Occasional /HPF (Few); Bilirubin,Urine Negative (Negative); Blood, Urine Small mg/dL (Negative); Glucose,Urine (UA) >=500 mg/dL (Negative); Ketones,Urine 5 mg/dL (Negative); Mucus,Urine Occasional /LPF (Occasional); Nitrite,Urine Negative (Negative); Protein,Urine >=500 MG/DL; RBC,Urine 6 /HPF (0-4); Squamous Epithelial Cell,Urine Occasional /HPF (0-10); Urine Color Yellow (Yellow); Urine Specific Gravity 1.015 (1.001-1.035); Urine Urobilinogen < 2.0 EU/DL (0.2-1.0); WBC,Urine 27 /HPF (0-6)
[2017-11-17 16:53] LABS: Barbiturates Screen,Urine Negative (Negative); Benzodiazepines Screen,Urine Negative (Negative); Cannabinoid Screen,Urine Negative (Negative); Opiate Screen,Urine Negative (Negative); Phencyclidine Screen,Urine Negative (Negative)
[2017-11-17 17:16] LABS: Risk Ratio 3.4; VLDL CHOLESTEROL 35.4 MG/DL
[2017-11-17] MEDS: INSULIN LISPRO 100 UNIT/ML SUBCUT SCH ×2 (17:37→22:12)
[2017-11-17] MEDS ORDERED: INSULIN GLARGINE 100 UNIT/ML SUBCUT SCH (21:00)
[2017-11-17] MEDS: hydrALAZINE 20 MG/1 ML VIAL IV PRN (22:20)
[2017-11-18] MEDS: LISINOPRIL 20 MG TABLET PO SCH ×3 (00:31→17:02)
[2017-11-18] MEDS: ATORVASTATIN 40 MG TABLET PO SCH ×2 (00:31→22:33)
[2017-11-18 05:12] LABS: Basophils # 0.1 10*3/uL (0.0-0.2); Basophils % 0.6 % (0.0-0.8); Eosinophils # 0.2 10*3/uL (0.0-0.87); Eosinophils % 1.6 % (0.00-10.9); Hematocrit 35.7 VOL% (35.7-47.0); Hemoglobin 11.5 GM/DL (12.0-16.0); Immature Granulocytes % 0.7 %; Immature Granulocytes Absolute 0.08 #; Lymphocytes # 1.5 10*3/uL (1.4-4.0); Lymphocytes % 13.4 % (21.3-54.2); Mean Corpuscular HGB Conc 32.2 GM/DL (32-36); Mean Corpuscular Hemoglobin 30 PG (27-34); Mean Corpuscular Volume 91.8 FL (87-102); Mean Platelet Volume 10.2 FL (9.6-12.0); Monocytes # 0.6 10*3/uL (0.11-0.8); Neutrophils # 8.9 10*3/uL (1.4-7.4); Neutrophils % 78.7 % (38.7-73.9); Platelet Count 227 T/CUMM (130-400); Red Blood Count 3.89 MC/CUMM (3.8-5.5); Red Cell Distribution Width 14.1 % (9.3-17.3); White Blood Count 11.3 T/CUMM (4-12)
[2017-11-18] MEDS: hydrALAZINE 20 MG/1 ML VIAL IV PRN (05:30)
[2017-11-18 05:54] LABS: Calcium 9.1 MG/DL (8.5-10.1); Osmolality,Calculated 307.1 MOS/KG (273-304); Potassium 4.1 MMOL/L (3.5-5.1); Thyroid Stimulating Hormone 3.16 uIU/ml (0.358-3.74)
[2017-11-18] MEDS: INSULIN LISPRO 100 UNIT/ML SUBCUT SCH ×4 (08:39→22:33)
[2017-11-18] MEDS ORDERED: ALBUTEROL 2.5 MG/3 ML NEB RESP TX PRN (10:26)
[2017-11-18] MEDS: ASPIRIN EC 81 MG TABLET PO SCH ×2 (12:19→17:02)
[2017-11-18] MEDS: CLOPIDOGREL 75 MG TABLET PO SCH ×2 (12:19→17:02)
[2017-11-18] MEDS: CARVEDILOL 6.25 MG TABLET PO SCH ×2 (12:20→22:33)
[2017-11-18] MEDS: PANTOPRAZOLE 40 MG TABLET PO SCH ×2 (12:20→17:02)
[2017-11-18] MEDS ORDERED: ISOSORBIDE MONONITRATE 30 MG TABLET PO SCH (21:00)
[2017-11-18] MEDS: ISOSORBIDE MONONITRATE 20 MG TABLET PO SCH (22:32)
[2017-11-18] MEDS: INSULIN GLARGINE 100 UNIT/ML SUBCUT SCH (22:33)
[2017-11-19] MEDS: LISINOPRIL 20 MG TABLET PO SCH ×2 (00:53→08:03)
[2017-11-19 04:20] LABS: Basophils # 0.1 10*3/uL (0.0-0.2); Basophils % 0.5 % (0.0-0.8); Eosinophils # 0.2 10*3/uL (0.0-0.87); Hematocrit 32.2 VOL% (35.7-47.0); Hemoglobin 10.5 GM/DL (12.0-16.0); Immature Granulocytes % 0.7 %; Immature Granulocytes Absolute 0.07 #; Lymphocytes # 1.6 10*3/uL (1.4-4.0); Lymphocytes % 15.7 % (21.3-54.2); Mean Corpuscular HGB Conc 32.6 GM/DL (32-36); Mean Corpuscular Hemoglobin 30 PG (27-34); Mean Corpuscular Volume 91.2 FL (87-102); Mean Platelet Volume 10.7 FL (9.6-12.0); Monocytes # 0.8 10*3/uL (0.11-0.8); Monocytes % 7.5 % (1.7-12.7); Neutrophils # 7.4 10*3/uL (1.4-7.4); Neutrophils % 73.6 % (38.7-73.9); Platelet Count 212 T/CUMM (130-400); Red Blood Count 3.53 MC/CUMM (3.8-5.5); Red Cell Distribution Width 14.5 % (9.3-17.3)
[2017-11-19 04:56] LABS: Calcium 8.9 MG/DL (8.5-10.1); Osmolality,Calculated 310.1 MOS/KG (273-304); Potassium 4.2 MMOL/L (3.5-5.1)
[2017-11-19] MEDS: CLOPIDOGREL 75 MG TABLET PO SCH (08:02)
[2017-11-19] MEDS: ASPIRIN EC 81 MG TABLET PO SCH (08:03)
[2017-11-19] MEDS: CARVEDILOL 6.25 MG TABLET PO SCH ×2 (08:03→22:46)
[2017-11-19] MEDS: PANTOPRAZOLE 40 MG TABLET PO SCH (08:03)
[2017-11-19] MEDS: ISOSORBIDE MONONITRATE 20 MG TABLET PO SCH ×2 (08:03→22:46)
[2017-11-19] MEDS: FUROSEMIDE 40 MG TABLET PO SCH (08:03)
[2017-11-19] MEDS: INSULIN LISPRO 100 UNIT/ML SUBCUT SCH ×4 (09:20→22:46)
[2017-11-19] MEDS: hydrALAZINE 20 MG/1 ML VIAL IV PRN (12:29)
[2017-11-19] MEDS: SODIUM CHLORIDE 0.45% 1,000 ML IV SCH (15:45)
[2017-11-19] MEDS: ATORVASTATIN 40 MG TABLET PO SCH (22:46)
[2017-11-19] MEDS: INSULIN GLARGINE 100 UNIT/ML SUBCUT SCH (22:47)
[2017-11-20] MEDS: SODIUM CHLORIDE 0.45% 1,000 ML IV SCH ×2 (05:18→19:06)
[2017-11-20] MEDS: INSULIN LISPRO 100 UNIT/ML SUBCUT SCH ×4 (08:03→22:26)
[2017-11-20] MEDS: PANTOPRAZOLE 40 MG TABLET PO SCH (09:50)
[2017-11-20] MEDS: ISOSORBIDE MONONITRATE 20 MG TABLET PO SCH ×2 (09:50→21:59)
[2017-11-20] MEDS: ASPIRIN EC 81 MG TABLET PO SCH (09:50)
[2017-11-20] MEDS: CARVEDILOL 6.25 MG TABLET PO SCH ×2 (09:50→22:00)
[2017-11-20] MEDS: CLOPIDOGREL 75 MG TABLET PO SCH (09:50)
[2017-11-20] MEDS: FUROSEMIDE 40 MG TABLET PO SCH (09:50)
[2017-11-20] MEDS: INSULIN GLARGINE 100 UNIT/ML SUBCUT SCH (22:00)
[2017-11-20] MEDS: ATORVASTATIN 40 MG TABLET PO SCH (22:00)
[2017-11-21] MEDS: INSULIN LISPRO 100 UNIT/ML SUBCUT SCH (08:25)
[2017-11-21] MEDS: CLOPIDOGREL 75 MG TABLET PO SCH (09:35)
[2017-11-21] MEDS: ASPIRIN EC 81 MG TABLET PO SCH (09:35)
[2017-11-21] MEDS: PANTOPRAZOLE 40 MG TABLET PO SCH (09:35)
[2017-11-21] MEDS: FUROSEMIDE 40 MG TABLET PO SCH (09:35)
[2017-11-21] MEDS: CARVEDILOL 6.25 MG TABLET PO SCH (09:35)
[2017-11-21] MEDS: ISOSORBIDE MONONITRATE 20 MG TABLET PO SCH (09:35)
[2017-11-21] MEDS: SODIUM CHLORIDE 0.45% 1,000 ML IV SCH (09:36)
[2017-11-21 12:06] VITALS: BP 144/65
== END 2017-11-21 11:43 | DRG 74 ==
LOC: N.TELEN 14:34 → SUATTDRO 14:34
PROVIDERS: ADMIT Internal Medicine; ATTEND Internal Medicine